=== PATIENT | male | born 1945 | race African-American/Black ===

== ENCOUNTER 2018-02-08 13:22 | Inpatient (IN) | payer MEDICARE, MEDICAID ==
[~2018-02-08] VITALS: Ht 165.1 cm; Wt 59.4 kg
[2018-02-08] MEDS ORDERED: METHYLPREDNISOLONE SOD SUCC 125 MG/2 ML VIAL IV STA (14:00)
[2018-02-08] MEDS ORDERED: ALBUTEROL (0.083%) 2.5MG/3ML NEB HHN STA (14:00)
[2018-02-08] MEDS ORDERED: IPRATROPIUM BROMIDE (0.02%) 0.5MG/2.5ML NEB HHN STA (14:00)
[2018-02-08 14:35] LABS: BASOPHILS % 0.8 % (0.0-2.0); HEMATOCRIT. 42.9 % (42.0-52.0); HEMOGLOBIN. 14.3 g/dL (14.0-18.0); LYMPHOCYTES % 27.6 % (20.0-50.0); MEAN CORPUSCULAR VOLUME 99.3 fL (80.0-94.0); MEAN PLATELET VOLUME 8.2 fl (7.4-10.4); MONOCYTES % 13.4 % (2.0-8.0); NEUTROPHILS % 55.2 % (40.0-76.0); PLATELET 316 x1000/uL (130-400); RED BLOOD CELL COUNT 4.32 mill/uL (4.7-6.1); RED CELL DISTRIBUTION WIDTH 15.4 % (11.6-14.6)
[2018-02-08 14:42] LABS: CHLORIDE 106 mEq/L (98-107)
[2018-02-08] MEDS ORDERED: AZITHROMYCIN 500 MG in DEXT 5% WATER 250 ML IV ONE (15:15)
[2018-02-08] MEDS ORDERED: CEFTRIAXONE 2 G PREMIX 50 ML IV ONE (15:15)
[2018-02-08] MEDS ORDERED: LORAZEPAM 0.5MG TABLET PO PRN (17:45)
[2018-02-08] MEDS ORDERED: IPRATROPIUM/ALBUTEROL 0.5-3(2.5)MG/3ML NEB INH PRN (17:45)
[2018-02-08] MEDS ORDERED: TRAMADOL 50MG TABLET PO PRN (17:45)
[2018-02-08] MEDS ORDERED: ONDANSETRON HCL 4MG/2ML INJ IV PRN (17:45)
[2018-02-08] MEDS ORDERED: CLONIDINE 0.1MG TABLET PO PRN (17:45)
[2018-02-08] MEDS ORDERED: DIPHENHYDRAMINE 50MG/ML VIAL IV PRN (17:45)
[2018-02-08] MEDS ORDERED: NITROGLYCERIN 0.4MG TABLET SL SL PRN (17:45)
[2018-02-08] MEDS ORDERED: GUAIFENESIN 200MG/10ML SUGAR FREE UDC PO PRN (17:45)
[2018-02-08] MEDS ORDERED: ZOLPIDEM TARTRATE 5MG TABLET PO PRN (17:45)
[2018-02-08] MEDS ORDERED: ACETAMINOPHEN 325MG TABLET PO PRN (17:45)
[2018-02-08] MEDS ORDERED: NA PHOS,M-B/NA PHOS,DI-BA ENEMA 118ML PR PRN (17:45)
[2018-02-08] MEDS ORDERED: MAGNESIUM/ALUMINUM HYDROXIDE/SIMETHICONE 30ML UDC PO PRN (17:45)
[2018-02-08 18:17] VITALS: BP 148/91
[2018-02-08] MEDS ORDERED: ALLO300T2 PO (18:35)
[2018-02-08] MEDS ORDERED: BENA40TA9 PO (18:35)
[2018-02-08] MEDS ORDERED: NAPR-679 MT (18:35)
[2018-02-08] MEDS ORDERED: AMLO2.5T45 MT (18:35)
[2018-02-08] MEDS ORDERED: ATOR40TA70 PO (18:35)
[2018-02-08] MEDS ORDERED: ASPI-1159 PO (18:35)
[2018-02-08 19:05] LABS: *AMPHETAMINES SCREEN URINE NEGATIVE (NEGATIVE); *BARBITURATES SCREEN URINE NEGATIVE (NEGATIVE); *BENZODIAZEPINES SCREEN URINE NEGATIVE (NEGATIVE); *COCAINE SCREEN URINE NEGATIVE (NEGATIVE)
[2018-02-08 19:06] LABS: CANNABINOID URINE SCREEN NEGATIVE (NEGATIVE); METHADONE URINE SCREEN NEGATIVE (NEGATIVE); OPIATES URINE SCREEN NEGATIVE (NEGATIVE); PHENCYCLIDINE URINE SCREEN NEGATIVE (NEGATIVE)
[2018-02-08 20:00] VITALS: BP 137/80
[2018-02-08] MEDS: LEVOFLOXACIN 750MG PREMIX 150 ML IV SCH (20:36)
[2018-02-08] MEDS: ENOXAPARIN 40MG/0.4ML SYR SUBCUT SCH (20:37)
[2018-02-08] MEDS: FAMOTIDINE 20MG TABLET PO SCH (20:38)
[2018-02-08] MEDS: DILTIAZEM HCL 90MG TABLET PO SCH ×2 (20:38→23:59)
[2018-02-08] MEDS: GUAIFENESIN 600MG ER TABLET PO SCH (20:39)
[2018-02-08] MEDS: ASCORBIC ACID 500 MG TABLET PO SCH (20:39)
[2018-02-08 21:00] VITALS: BP 148/91
[2018-02-08] MEDS: METHYLPREDNISOLONE SOD SUCC 125 MG/2 ML VIAL IV SCH (22:01)
[2018-02-09] VITALS: BP 131/78
[2018-02-09 01:14] LABS: CREATINE KINASE 83 IU/L (39-308)
[2018-02-09 01:17] LABS: CREATINE KINASE MB FRACTION 1.5 ng/mL (0.5-3.6)
[2018-02-09 04:00] VITALS: BP 118/70
[2018-02-09] MEDS: METHYLPREDNISOLONE SOD SUCC 125 MG/2 ML VIAL IV SCH ×4 (05:51→20:27)
[2018-02-09] MEDS: DILTIAZEM HCL 90MG TABLET PO SCH ×4 (05:52→23:47)
[2018-02-09 06:59] LABS: CREATINE KINASE 73 IU/L (39-308)
[2018-02-09 07:00] LABS: CREATINE KINASE MB FRACTION 1.7 ng/mL (0.5-3.6)
[2018-02-09] MEDS: GUAIFENESIN 600MG ER TABLET PO SCH ×2 (09:36→20:27)
[2018-02-09] MEDS: ZINC SULFATE 220 MG ( 50 ) CAPSULE PO SCH (09:37)
[2018-02-09] MEDS: ASCORBIC ACID 500 MG TABLET PO SCH ×2 (09:37→20:27)
[2018-02-09] MEDS: ASPIRIN 325MG EC TABLET PO SCH (09:37)
[2018-02-09] MEDS: FAMOTIDINE 20MG TABLET PO SCH ×2 (09:37→20:27)
[2018-02-09 20:00] VITALS: BP 114/63
[2018-02-09] MEDS: LEVOFLOXACIN 750MG PREMIX 150 ML IV SCH (20:28)
[2018-02-09] MEDS: ENOXAPARIN 40MG/0.4ML SYR SUBCUT SCH (22:50)
[2018-02-10] VITALS: BP 138/69
[2018-02-10 04:00] VITALS: BP 143/91
[2018-02-10] MEDS: IPRATROPIUM/ALBUTEROL 0.5-3(2.5)MG/3ML NEB HHN SCH ×5 (04:52→21:14)
[2018-02-10] MEDS: DILTIAZEM HCL 90MG TABLET PO SCH ×3 (05:57→17:30)
[2018-02-10] MEDS: METHYLPREDNISOLONE SOD SUCC 125 MG/2 ML VIAL IV SCH ×3 (05:57→21:08)
[2018-02-10 08:00] VITALS: BP 117/68
[2018-02-10] MEDS: ASCORBIC ACID 500 MG TABLET PO SCH ×2 (08:42→21:08)
[2018-02-10] MEDS: ZINC SULFATE 220 MG ( 50 ) CAPSULE PO SCH (08:42)
[2018-02-10] MEDS: ASPIRIN 325MG EC TABLET PO SCH (08:42)
[2018-02-10] MEDS: GUAIFENESIN 600MG ER TABLET PO SCH ×2 (08:42→21:08)
[2018-02-10] MEDS: FAMOTIDINE 20MG TABLET PO SCH ×2 (08:43→21:08)
[2018-02-10 11:51] VITALS: BP 114/67
[2018-02-10 16:00] VITALS: BP 144/76
[2018-02-10] MEDS: ENOXAPARIN 40MG/0.4ML SYR SUBCUT SCH (17:31)
[2018-02-10] MEDS: DOCUSATE SODIUM 100MG CAPSULE PO PRN (18:49)
[2018-02-10 20:00] VITALS: BP 113/61
[2018-02-10] MEDS ORDERED: POTASSIUM CHLORIDE 20MEQ TABLET SR PO NR (21:00)
[2018-02-10] MEDS: LEVOFLOXACIN 750MG PREMIX 150 ML IV SCH (21:08)
[2018-02-11] VITALS: BP 116/64
[2018-02-11] MEDS: IPRATROPIUM/ALBUTEROL 0.5-3(2.5)MG/3ML NEB HHN SCH ×6 (01:00→20:46)
[2018-02-11 04:00] VITALS: BP 118/59
[2018-02-11] MEDS: DILTIAZEM HCL 90MG TABLET PO SCH ×2 (05:53)
[2018-02-11] MEDS: METHYLPREDNISOLONE SOD SUCC 125 MG/2 ML VIAL IV SCH ×3 (06:00→21:04)
[2018-02-11] MEDS: DOCUSATE SODIUM 100MG CAPSULE PO PRN (06:05)
[2018-02-11 08:00] VITALS: BP 130/69
[2018-02-11] MEDS: ASCORBIC ACID 500 MG TABLET PO SCH ×2 (09:08→21:04)
[2018-02-11] MEDS: ZINC SULFATE 220 MG ( 50 ) CAPSULE PO SCH (09:08)
[2018-02-11] MEDS: FAMOTIDINE 20MG TABLET PO SCH ×2 (09:08→21:04)
[2018-02-11] MEDS: ASPIRIN 325MG EC TABLET PO SCH (09:08)
[2018-02-11] MEDS: GUAIFENESIN 600MG ER TABLET PO SCH ×2 (09:08→21:04)
[2018-02-11 12:00] VITALS: BP 129/65
[2018-02-11] MEDS: DILTIAZEM HCL 60MG TABLET PO SCH ×2 (14:37→21:05)
[2018-02-11 16:00] VITALS: BP 131/65
[2018-02-11] MEDS: ENOXAPARIN 40MG/0.4ML SYR SUBCUT SCH (18:17)
[2018-02-11 20:00] VITALS: BP 141/69
[2018-02-11] MEDS: LEVOFLOXACIN 750MG PREMIX 150 ML IV SCH (21:03)
[2018-02-12] VITALS: BP 130/69
[2018-02-12] MEDS: IPRATROPIUM/ALBUTEROL 0.5-3(2.5)MG/3ML NEB HHN SCH ×3 (01:23→08:13)
[2018-02-12 04:00] VITALS: BP 149/79
[2018-02-12] MEDS: METHYLPREDNISOLONE SOD SUCC 125 MG/2 ML VIAL IV SCH (05:06)
[2018-02-12] MEDS: DILTIAZEM HCL 60MG TABLET PO SCH (05:06)
[2018-02-12 08:00] VITALS: BP 127/76
[2018-02-12] MEDS: GUAIFENESIN 600MG ER TABLET PO SCH (08:57)
[2018-02-12] MEDS: FAMOTIDINE 20MG TABLET PO SCH (08:57)
[2018-02-12] MEDS: ASPIRIN 325MG EC TABLET PO SCH (08:57)
[2018-02-12] MEDS: ZINC SULFATE 220 MG ( 50 ) CAPSULE PO SCH (08:57)
[2018-02-12] MEDS: ASCORBIC ACID 500 MG TABLET PO SCH (08:57)
[2018-02-12 09:36] LABS: HEMATOCRIT. 40.1 % (42.0-52.0); HEMOGLOBIN. 13.2 g/dL (14.0-18.0); MEAN CORPUSCULAR HEMOGLOBIN 32.5 pg (28.0-32.0); MEAN CORPUSCULAR VOLUME 98.4 fL (80.0-94.0); MEAN PLATELET VOLUME 8.7 fl (7.4-10.4); PLATELET 368 x1000/uL (130-400); RED BLOOD CELL COUNT 4.07 mill/uL (4.7-6.1)
[2018-02-12 09:53] VITALS: BP 127/76
[2018-02-12 10:01] LABS: CHLORIDE 102 mEq/L (98-107)
[2018-02-12 12:00] VITALS: BP 135/75
[2018-02-12 12:25] LABS: PLATELET ESTIMATE NORMAL
== END 2018-02-12 12:10 | disposition home or self-care (01) | DRG 193 ==
LOC: ENRESERV 16:09 → ER 16:28 → 7WST 16:46
PROVIDERS: ADMIT Internal Medicine; ATTEND Internal Medicine
DX: J18.1 Lobar pneumonia, unspecified organism (principal); J96.00 Acute respiratory failure, unspecified whether with hypoxia or hypercapnia; J44.1 Chronic obstructive pulmonary disease with (acute) exacerbation; J44.0 Chronic obstructive pulmonary disease with (acute) lower respiratory infection; I47.2 Ventricular tachycardia; D68.4 Acquired coagulation factor deficiency; D68.9 Coagulation defect, unspecified; I10 Essential (primary) hypertension; E78.00 Pure hypercholesterolemia, unspecified; E83.42 Hypomagnesemia; E87.6 Hypokalemia; F17.210 Nicotine dependence, cigarettes, uncomplicated; I11.9 Hypertensive heart disease without heart failure; M19.90 Unspecified osteoarthritis, unspecified site; Z79.899 Other long term (current) drug therapy; Z79.82 Long term (current) use of aspirin
CPT/HCPCS: 36415; 71045; 80048; 80305; 82550; 82553; 83036; 83605; 83735; 83880; 84132; 84484; 87804; 93005; 93306; 93970; 94640; 96374; 96375; 97162; 97165; 99285; C1893; J0456; J0696; J1650; J1956; J2930; J7040; J7060; J7611; J7620

== ENCOUNTER 2018-02-25 11:42 | Inpatient (IN) | payer MEDICARE, MEDICAID ==
[~2018-02-25] VITALS: Ht 172.7 cm; Wt 59.9 kg
[~2018-02-25 11:42] MED LIST: ALLO300T2 PO; AMLO2.5T45 MT; ASPI-1159 PO; ATOR40TA70 PO; BENA40TA9 PO; NAPR-679 MT
[2018-02-25] MEDS ORDERED: METHYLPREDNISOLONE SOD SUCC 125 MG/2 ML VIAL IV STA (12:30)
[2018-02-25] MEDS ORDERED: ALBUTEROL (0.083%) 2.5MG/3ML NEB HHN STA (12:30)
[2018-02-25] MEDS ORDERED: ASPIRIN 81MG TABLET PO ONE (12:30)
[2018-02-25] MEDS ORDERED: IPRATROPIUM BROMIDE (0.02%) 0.5MG/2.5ML NEB HHN STA (12:30)
[2018-02-25 13:25] LABS: BASOPHILS % 0.8 % (0.0-2.0); EOSINOPHILS % 2.1 % (0.0-5.0); HEMATOCRIT. 44.5 % (42.0-52.0); HEMOGLOBIN. 14.5 g/dL (14.0-18.0); LYMPHOCYTES % 12.4 % (20.0-50.0); MEAN CORPUSCULAR HEMOGLOBIN 32.1 pg (28.0-32.0); MEAN CORPUSCULAR VOLUME 98.4 fL (80.0-94.0); MEAN PLATELET VOLUME 8.5 fl (7.4-10.4); MONOCYTES % 12.8 % (2.0-8.0); NEUTROPHILS % 71.9 % (40.0-76.0); PLATELET 299 x1000/uL (130-400); RED BLOOD CELL COUNT 4.52 mill/uL (4.7-6.1); RED CELL DISTRIBUTION WIDTH 15.4 % (11.6-14.6)
[2018-02-25] MEDS ORDERED: ALBUTEROL (0.083%) 2.5MG/3ML NEB ONE (13:31)
[2018-02-25 13:32] LABS: CHLORIDE 106 mEq/L (98-107)
[2018-02-25] MEDS ORDERED: SODIUM CHLORIDE 0.9% 1,000 ML IV ONE ×2 (13:40→13:45)
[2018-02-25] MEDS ORDERED: PIPERACILLIN/TAZOBACTAM 3.375GM/50ML PREMIX IV ONE (13:45)
[2018-02-25] MEDS ORDERED: PIPERACILLIN/TAZ 3.375G PREMIX 50 ML IV SCH (14:30)
[2018-02-25] MEDS ORDERED: ONDANSETRON HCL 4MG/2ML INJ IV PRN (15:30)
[2018-02-25] MEDS ORDERED: GUAIFENESIN-DM 200MG-20MG/10ML UDC PO PRN (15:30)
[2018-02-25] MEDS ORDERED: BUDESONIDE 0.5MG/2ML NEB HHN SCH (15:30)
[2018-02-25] MEDS ORDERED: ACETAMINOPHEN 325MG TABLET PO PRN (15:30)
[2018-02-25] MEDS ORDERED: AZITHROMYCIN 500 MG TABLET PO NR (15:45)
[2018-02-25] MEDS ORDERED: CEFTRIAXONE 1 G PREMIX 50 ML IV NR (15:45)
[2018-02-25 15:55] LABS: CLARITY URINE CLEAR (CLEAR); COLOR URINE YELLOW (YELLOW); KETONES URINE NEGATIVE (NEGATIVE); LEUKOCYTE ESTERASE URINE NEGATIVE (NEGATIVE); NITRITE URINE NEGATIVE (NEGATIVE); OCCULT BLOOD URINE NEGATIVE (NEGATIVE); PROTEIN URINE NEGATIVE (NEGATIVE); SPECIFIC GRAVITY URINE 1.014 (1.005-1.030); UROBILINOGEN URINE 0.2 E.U./dL (0.2-1.0)
[2018-02-25] MEDS: CLONIDINE 0.1MG TABLET PO PRN ×2 (16:07→21:28)
[2018-02-25 16:09] LABS: *AMPHETAMINES SCREEN URINE NEGATIVE (NEGATIVE); CANNABINOID URINE SCREEN NEGATIVE (NEGATIVE); METHADONE URINE SCREEN NEGATIVE (NEGATIVE); OPIATES URINE SCREEN NEGATIVE (NEGATIVE); PHENCYCLIDINE URINE SCREEN NEGATIVE (NEGATIVE)
[2018-02-25 16:10] LABS: *BARBITURATES SCREEN URINE NEGATIVE (NEGATIVE); *BENZODIAZEPINES SCREEN URINE NEGATIVE (NEGATIVE); *COCAINE SCREEN URINE NEGATIVE (NEGATIVE)
[2018-02-25 20:00] VITALS: BP 182/102
[2018-02-25] MEDS: ZOLPIDEM TARTRATE 5MG TABLET PO PRN (21:27)
[2018-02-25] MEDS: AMLODIPINE 5MG TABLET PO SCH (21:28)
[2018-02-25] MEDS: IPRATROPIUM/ALBUTEROL 0.5-3(2.5)MG/3ML NEB HHN PRN (21:37)
[2018-02-25] MEDS: BUDESONIDE 0.5MG/2ML NEB HHN SCH (21:41)
[2018-02-25] MEDS: HYDROCODONE/ACETAMINOPHEN 10/325MG TABLET PO PRN (21:58)
[2018-02-25] MEDS: GUAIFENESIN 600MG ER TABLET PO SCH (21:59)
[2018-02-25] MEDS: ATORVASTATIN CALCIUM 40MG TABLET PO SCH (21:59)
[2018-02-25 22:20] VITALS: BP 182/102
[2018-02-26 00:50] VITALS: BP 120/71
[2018-02-26 04:00] VITALS: BP 132/88
[2018-02-26 07:15] LABS: BASOPHILS % 0.3 % (0.0-2.0); HEMATOCRIT. 38.6 % (42.0-52.0); HEMOGLOBIN. 12.5 g/dL (14.0-18.0); LYMPHOCYTES % 9.1 % (20.0-50.0); MEAN CORPUSCULAR HEMOGLOBIN 31.6 pg (28.0-32.0); MEAN CORPUSCULAR VOLUME 97.5 fL (80.0-94.0); MEAN PLATELET VOLUME 8.6 fl (7.4-10.4); MONOCYTES % 3.4 % (2.0-8.0); NEUTROPHILS % 87.2 % (40.0-76.0); PLATELET 300 x1000/uL (130-400); RED BLOOD CELL COUNT 3.96 mill/uL (4.7-6.1); RED CELL DISTRIBUTION WIDTH 15.1 % (11.6-14.6)
[2018-02-26 08:00] VITALS: BP 137/87
[2018-02-26 08:06] LABS: CHLORIDE 109 mEq/L (98-107)
[2018-02-26] MEDS: GUAIFENESIN 600MG ER TABLET PO SCH ×2 (08:54→20:46)
[2018-02-26] MEDS: AZITHROMYCIN 500 MG TABLET PO SCH (08:54)
[2018-02-26] MEDS: ENOXAPARIN 40MG/0.4ML SYR SUBCUT SCH (08:55)
[2018-02-26] MEDS: ALLOPURINOL 300 MG TABLET PO SCH (08:55)
[2018-02-26] MEDS: AMLODIPINE 5MG TABLET PO SCH ×2 (08:55→20:46)
[2018-02-26] MEDS: BUDESONIDE 0.5MG/2ML NEB HHN SCH ×2 (09:15→20:49)
[2018-02-26] MEDS: HYDROCODONE/ACETAMINOPHEN 10/325MG TABLET PO PRN (12:27)
[2018-02-26 12:30] VITALS: BP 155/79
[2018-02-26 13:28] LABS: BG BASE EXCESS -1.4 mmol/L (-2.0-2.0); BG CARBOXYHEMOGLOBIN 0.9 % (0.5-1.5); BG DEOXYHEMOGLOBIN 18.1 % (0.0-5.0); BG FRACTION INSPIRED OXYGEN 21; BG HCO3 ACT 22.2 mmol/L (22.0-26.0); BG OXYGEN SATURATION 81.7 % (92.0-98.5); BG PH 7.432 (7.350-7.450); BG SAMPLE SITE RIGHT BRACHIAL; BG TOTAL HEMOGLOBIN 13.6 g/dL (12.0-18.0); BG VENT MODE ROOM AIR
[2018-02-26] MEDS: CEFTRIAXONE 1 G PREMIX 50 ML IV SCH (14:35)
[2018-02-26] MEDS ORDERED: IOHEXOL-350 100 ML BOTTLE ONE ×2 (15:25→15:57)
[2018-02-26] MEDS ORDERED: CEFTRIAXONE 1 G PREMIX 50 ML IV SCH (15:30)
[2018-02-26 16:00] VITALS: BP 135/87
[2018-02-26] MEDS: IPRATROPIUM BROMIDE (0.02%) 0.5MG/2.5ML NEB HHN SCH ×2 (17:05→20:47)
[2018-02-26] MEDS: ACETYLCYSTEINE 100MG/ML 10% VIAL 4ML INH SCH (17:05)
[2018-02-26 20:00] VITALS: BP 140/80
[2018-02-26] MEDS ORDERED: INFLUENZA VIRUS VACCINE(AFLURIA) 0.5ML SYR IM ONE (20:30)
[2018-02-26] MEDS: ZOLPIDEM TARTRATE 5MG TABLET PO PRN (20:46)
[2018-02-26] MEDS: IPRATROPIUM/ALBUTEROL 0.5-3(2.5)MG/3ML NEB HHN PRN (20:46)
[2018-02-26] MEDS: ATORVASTATIN CALCIUM 40MG TABLET PO SCH (20:46)
[2018-02-27] VITALS: BP 145/85
[2018-02-27] MEDS: IPRATROPIUM BROMIDE (0.02%) 0.5MG/2.5ML NEB HHN SCH ×6 (00:45→21:37)
[2018-02-27] MEDS: ACETYLCYSTEINE 100MG/ML 10% VIAL 4ML INH SCH ×3 (00:45→15:53)
[2018-02-27] MEDS: HYDROCODONE/ACETAMINOPHEN 10/325MG TABLET PO PRN ×2 (03:51→14:23)
[2018-02-27 04:00] VITALS: BP 154/86
[2018-02-27 07:11] LABS: BASOPHILS % 0.6 % (0.0-2.0); HEMATOCRIT. 39.9 % (42.0-52.0); HEMOGLOBIN. 12.9 g/dL (14.0-18.0); MEAN CORPUSCULAR HEMOGLOBIN 31.5 pg (28.0-32.0); MEAN CORPUSCULAR VOLUME 97.5 fL (80.0-94.0); MEAN PLATELET VOLUME 8.6 fl (7.4-10.4); MONOCYTES % 7.6 % (2.0-8.0); NEUTROPHILS % 77.8 % (40.0-76.0); PLATELET 304 x1000/uL (130-400); RED BLOOD CELL COUNT 4.09 mill/uL (4.7-6.1); RED CELL DISTRIBUTION WIDTH 15.2 % (11.6-14.6)
[2018-02-27 07:22] LABS: CHLORIDE 106 mEq/L (98-107)
[2018-02-27 08:00] VITALS: BP 140/87
[2018-02-27] MEDS: BUDESONIDE 0.5MG/2ML NEB HHN SCH ×2 (08:05→21:37)
[2018-02-27] MEDS: AZITHROMYCIN 500 MG TABLET PO SCH (08:38)
[2018-02-27] MEDS: AMLODIPINE 5MG TABLET PO SCH ×2 (08:39→21:13)
[2018-02-27] MEDS: ENOXAPARIN 40MG/0.4ML SYR SUBCUT SCH (08:39)
[2018-02-27] MEDS: ALLOPURINOL 300 MG TABLET PO SCH (08:39)
[2018-02-27] MEDS: GUAIFENESIN 600MG ER TABLET PO SCH ×2 (08:39→21:14)
[2018-02-27 12:00] VITALS: BP 146/78
[2018-02-27] MEDS ORDERED: LORAZEPAM 2MG/ML CPJ IV PRN (13:45)
[2018-02-27] MEDS: CEFTRIAXONE 1 G PREMIX 50 ML IV SCH (15:39)
[2018-02-27 16:00] VITALS: BP 132/80
[2018-02-27 18:04] LABS: PROTHROMBIN TIME 10.5 sec (9.1-11.1)
[2018-02-27 19:56] VITALS: BP 137/86
[2018-02-27] MEDS: ATORVASTATIN CALCIUM 40MG TABLET PO SCH (21:13)
[2018-02-27] MEDS: ZOLPIDEM TARTRATE 5MG TABLET PO PRN (21:14)
[2018-02-28] VITALS: BP 112/71
[2018-02-28] MEDS: IPRATROPIUM BROMIDE (0.02%) 0.5MG/2.5ML NEB HHN SCH ×4 (00:34→20:47)
[2018-02-28] MEDS: ACETYLCYSTEINE 100MG/ML 10% VIAL 4ML INH SCH ×2 (00:34→14:07)
[2018-02-28 04:00] VITALS: BP 160/102
[2018-02-28] MEDS: HYDROCODONE/ACETAMINOPHEN 10/325MG TABLET PO PRN ×2 (04:36→19:02)
[2018-02-28] MEDS: CLONIDINE 0.1MG TABLET PO PRN (04:36)
[2018-02-28 07:25] LABS: BASOPHILS % 0.8 % (0.0-2.0); EOSINOPHILS % 4.3 % (0.0-5.0); HEMATOCRIT. 39.4 % (42.0-52.0); HEMOGLOBIN. 13.1 g/dL (14.0-18.0); LYMPHOCYTES % 20.9 % (20.0-50.0); MEAN CORPUSCULAR HEMOGLOBIN 32.1 pg (28.0-32.0); MEAN CORPUSCULAR VOLUME 96.5 fL (80.0-94.0); MEAN PLATELET VOLUME 8.6 fl (7.4-10.4); MONOCYTES % 13.5 % (2.0-8.0); NEUTROPHILS % 60.5 % (40.0-76.0); PLATELET 303 x1000/uL (130-400); RED BLOOD CELL COUNT 4.08 mill/uL (4.7-6.1); RED CELL DISTRIBUTION WIDTH 15.3 % (11.6-14.6)
[2018-02-28 07:35] LABS: CHLORIDE 103 mEq/L (98-107)
[2018-02-28 08:00] VITALS: BP 140/99
[2018-02-28] MEDS: ENOXAPARIN 40MG/0.4ML SYR SUBCUT SCH (09:00)
[2018-02-28] MEDS: ALLOPURINOL 300 MG TABLET PO SCH (09:02)
[2018-02-28] MEDS: AZITHROMYCIN 500 MG TABLET PO SCH (09:02)
[2018-02-28] MEDS: GUAIFENESIN 600MG ER TABLET PO SCH ×2 (09:03→21:14)
[2018-02-28] MEDS: AMLODIPINE 5MG TABLET PO SCH ×2 (09:03→21:14)
[2018-02-28] MEDS ORDERED: SODIUM BICARBONATE 4% (2.4MEQ) 5ML VIAL IV ONE (09:31)
[2018-02-28 12:00] VITALS: BP 137/85
[2018-02-28 13:29] LABS: PROTHROMBIN TIME 10.4 sec (9.1-11.1)
[2018-02-28] MEDS: BUDESONIDE 0.5MG/2ML NEB HHN SCH ×2 (14:07→20:47)
[2018-02-28 16:00] VITALS: BP 147/94
[2018-02-28] MEDS: CEFTRIAXONE 1 G PREMIX 50 ML IV SCH (18:12)
[2018-02-28 20:00] VITALS: BP 137/79
[2018-02-28] MEDS: ATORVASTATIN CALCIUM 40MG TABLET PO SCH (21:14)
[2018-02-28] MEDS: ZOLPIDEM TARTRATE 5MG TABLET PO PRN (21:14)
[2018-03-01] VITALS (7 sets, daily range): BP systolic 118–143; BP diastolic 79–99
[2018-03-01] MEDS: IPRATROPIUM BROMIDE (0.02%) 0.5MG/2.5ML NEB HHN SCH ×5 (00:31→21:11)
[2018-03-01] MEDS: ACETYLCYSTEINE 100MG/ML 10% VIAL 4ML INH SCH ×2 (00:31→13:00)
[2018-03-01] MEDS: ENOXAPARIN 40MG/0.4ML SYR SUBCUT SCH ×2 (08:49→08:53)
[2018-03-01] MEDS: AMLODIPINE 5MG TABLET PO SCH ×2 (08:49→20:26)
[2018-03-01] MEDS: AZITHROMYCIN 500 MG TABLET PO SCH (08:49)
[2018-03-01] MEDS: GUAIFENESIN 600MG ER TABLET PO SCH ×2 (08:49→20:26)
[2018-03-01] MEDS: ALLOPURINOL 300 MG TABLET PO SCH (09:20)
[2018-03-01] MEDS: CEFTRIAXONE 1 G PREMIX 50 ML IV SCH (14:54)
[2018-03-01] MEDS: ATORVASTATIN CALCIUM 40MG TABLET PO SCH (20:26)
[2018-03-01] MEDS: ZOLPIDEM TARTRATE 5MG TABLET PO PRN (20:26)
[2018-03-01] MEDS: HYDROCODONE/ACETAMINOPHEN 10/325MG TABLET PO PRN (20:26)
[2018-03-02] VITALS: BP 110/79
[2018-03-02] MEDS: IPRATROPIUM BROMIDE (0.02%) 0.5MG/2.5ML NEB HHN SCH ×7 (00:54→23:47)
[2018-03-02] MEDS: ACETYLCYSTEINE 100MG/ML 10% VIAL 4ML INH SCH ×4 (00:55→23:39)
[2018-03-02 04:00] VITALS: BP 120/71
[2018-03-02 08:00] VITALS: BP 122/69
[2018-03-02] MEDS: AMLODIPINE 5MG TABLET PO SCH ×2 (09:04→20:53)
[2018-03-02] MEDS: AZITHROMYCIN 500 MG TABLET PO SCH (09:05)
[2018-03-02] MEDS: GUAIFENESIN 600MG ER TABLET PO SCH ×2 (09:05→20:52)
[2018-03-02] MEDS: ALLOPURINOL 300 MG TABLET PO SCH (09:05)
[2018-03-02] MEDS: ENOXAPARIN 40MG/0.4ML SYR SUBCUT SCH (09:13)
[2018-03-02 12:00] VITALS: BP 130/70
[2018-03-02 13:36] LABS: BG BASE EXCESS -0.9 mmol/L (-2.0-2.0); BG CARBOXYHEMOGLOBIN 1.2 % (0.5-1.5); BG DEOXYHEMOGLOBIN 13.7 % (0.0-5.0); BG FRACTION INSPIRED OXYGEN 21; BG HCO3 ACT 23.4 mmol/L (22.0-26.0); BG METHEMOGLOBIN 0.3 % (0.0-1.5); BG OXYGEN SATURATION 86.1 % (92.0-98.5); BG OXYHEMOGLOBIN 84.8 % (94.0-97.0); BG PH 7.408 (7.350-7.450); BG PO2 51.4 mmHg (75.0-100.0); BG SAMPLE SITE RIGHT BRACHIAL; BG VENT MODE ROOM AIR
[2018-03-02] MEDS: CEFTRIAXONE 1 G PREMIX 50 ML IV SCH (14:08)
[2018-03-02] MEDS: HYDROCODONE/ACETAMINOPHEN 10/325MG TABLET PO PRN ×2 (14:15→20:53)
[2018-03-02 16:00] VITALS: BP 128/69
[2018-03-02 20:00] VITALS: BP 133/81
[2018-03-02] MEDS: ATORVASTATIN CALCIUM 40MG TABLET PO SCH (20:52)
[2018-03-02] MEDS: ZOLPIDEM TARTRATE 5MG TABLET PO PRN (23:29)
[2018-03-02] MEDS: IPRATROPIUM/ALBUTEROL 0.5-3(2.5)MG/3ML NEB HHN PRN (23:39)
[2018-03-03] VITALS: BP 125/71
[2018-03-03] MEDS: IPRATROPIUM BROMIDE (0.02%) 0.5MG/2.5ML NEB HHN SCH ×3 (04:00→12:21)
[2018-03-03] MEDS ORDERED: HYDROCODONE/ACETAMINOPHEN 10/325MG TABLET PO PRN (06:45)
[2018-03-03 08:00] VITALS: BP 109/79
[2018-03-03] MEDS: GUAIFENESIN 600MG ER TABLET PO SCH (09:00)
[2018-03-03] MEDS: AZITHROMYCIN 500 MG TABLET PO SCH (09:00)
[2018-03-03] MEDS: AMLODIPINE 5MG TABLET PO SCH (09:00)
[2018-03-03] MEDS: ALLOPURINOL 300 MG TABLET PO SCH (09:00)
[2018-03-03] MEDS: ENOXAPARIN 40MG/0.4ML SYR SUBCUT SCH (09:00)
[2018-03-03] MEDS: ACETYLCYSTEINE 100MG/ML 10% VIAL 4ML INH SCH (09:24)
[2018-03-03 10:09] LABS: EOSINOPHILS % 7.9 % (0.0-5.0); HEMATOCRIT. 43.1 % (42.0-52.0); HEMOGLOBIN. 14.1 g/dL (14.0-18.0); MEAN CORPUSCULAR VOLUME 97.4 fL (80.0-94.0); MEAN PLATELET VOLUME 8.2 fl (7.4-10.4); MONOCYTES % 12.3 % (2.0-8.0); NEUTROPHILS % 64.8 % (40.0-76.0); PLATELET 335 x1000/uL (130-400); RED BLOOD CELL COUNT 4.42 mill/uL (4.7-6.1); RED CELL DISTRIBUTION WIDTH 14.9 % (11.6-14.6)
[2018-03-03 10:23] LABS: CHLORIDE 104 mEq/L (98-107)
[2018-03-03 12:00] VITALS: BP 120/76
[2018-03-03] MEDS: CEFTRIAXONE 1 G PREMIX 50 ML IV SCH (14:04)
[2018-03-03 14:29] LABS: BG BASE EXCESS -1.6 mmol/L (-2.0-2.0); BG CARBOXYHEMOGLOBIN 1.8 % (0.5-1.5); BG DEOXYHEMOGLOBIN 12.1 % (0.0-5.0); BG FRACTION INSPIRED OXYGEN 21; BG HCO3 ACT 22.5 mmol/L (22.0-26.0); BG METHEMOGLOBIN 0.3 % (0.0-1.5); BG OXYGEN SATURATION 87.6 % (92.0-98.5); BG OXYHEMOGLOBIN 85.8 % (94.0-97.0); BG PCO2 36.5 mmHg (35.0-45.0); BG PH 7.408 (7.350-7.450); BG PO2 54.8 mmHg (75.0-100.0); BG SAMPLE SITE RIGHT BRACHIAL; BG TOTAL HEMOGLOBIN 15.1 g/dL (12.0-18.0); BG VENT MODE ROOM AIR
[2018-03-03 15:10] VITALS: BP 120/76
== END 2018-03-03 17:01 | disposition home health service (06) | DRG 871 ==
LOC: ER 12:19 → EDBEDREQ 12:39 → 7WST 14:07 → EDBEDREQ 14:09 → ENRESERV 18:12
PROVIDERS: ADMIT Internal Medicine; ATTEND Internal Medicine
PROC: 0W993ZZ Drainage of Right Pleural Cavity, Percutaneous Approach (ICD-10-PCS; principal; 2018-02-28)
DX: A41.9 Sepsis, unspecified organism (principal); J96.00 Acute respiratory failure, unspecified whether with hypoxia or hypercapnia; J18.1 Lobar pneumonia, unspecified organism; E44.1 Mild protein-calorie malnutrition; J44.0 Chronic obstructive pulmonary disease with (acute) lower respiratory infection; J90 Pleural effusion, not elsewhere classified; M10.9 Gout, unspecified; M19.90 Unspecified osteoarthritis, unspecified site; E78.5 Hyperlipidemia, unspecified; I11.9 Hypertensive heart disease without heart failure; F17.200 Nicotine dependence, unspecified, uncomplicated; R91.8 Other nonspecific abnormal finding of lung field; Z87.01 Personal history of pneumonia (recurrent); Z68.20 Body mass index [BMI] 20.0-20.9, adult
CPT/HCPCS: 32555; 36415; 36600; 71045; 71275; 80048; 80305; 82040; 82375; 82805; 83605; 83615; 83880; 84484; 85379; 87804; 88108; 88312; 93005; 93306; 94640; 96374; 99285; C1893; J0696; J1650; J2543; J2930; J3490; J7030; J7040; J7608; J7611; J7620; J7626; Q9967

== ENCOUNTER 2018-03-19 11:14 | Inpatient (IN) | payer MEDICARE, MEDICAID ==
[2018-03-19] VITALS (26 sets, daily range): BP systolic 45–164; BP diastolic 20–131
[~2018-03-19] VITALS: Ht 177.8 cm; Wt 61.3 kg
[2018-03-19] MEDS ORDERED: METHYLPREDNISOLONE SOD SUCC 125 MG/2 ML VIAL IV STA (11:27)
[2018-03-19] MEDS ORDERED: MAGNESIUM 2 G PREMIX 50 ML IV STA (11:27)
[2018-03-19] MEDS ORDERED: ALBUTEROL (0.083%) 2.5MG/3ML NEB HHN STA (11:27)
[2018-03-19] MEDS ORDERED: IPRATROPIUM BROMIDE (0.02%) 0.5MG/2.5ML NEB HHN STA (11:27)
[2018-03-19] MEDS ORDERED: IPRATROPIUM/ALBUTEROL 0.5-3(2.5)MG/3ML NEB ONE (11:37)
[2018-03-19] MEDS ORDERED: ALBUTEROL (0.5%) 2.5MG/0.5ML NEB HHN ONE (11:38)
[2018-03-19 12:21] LABS: BASOPHILS % 0.7 % (0.0-2.0); EOSINOPHILS % 0.8 % (0.0-5.0); HEMATOCRIT. 46.5 % (42.0-52.0); HEMOGLOBIN. 15.2 g/dL (14.0-18.0); LYMPHOCYTES % 11.5 % (20.0-50.0); MEAN CORPUSCULAR HEMOGLOBIN 31.2 pg (28.0-32.0); MEAN CORPUSCULAR VOLUME 95.5 fL (80.0-94.0); MEAN PLATELET VOLUME 8.6 fl (7.4-10.4); MONOCYTES % 8.6 % (2.0-8.0); NEUTROPHILS % 78.4 % (40.0-76.0); PLATELET 522 x1000/uL (130-400); RED BLOOD CELL COUNT 4.87 mill/uL (4.7-6.1); RED CELL DISTRIBUTION WIDTH 15.3 % (11.6-14.6)
[2018-03-19 12:35] LABS: CHLORIDE 106 mEq/L (98-107)
[2018-03-19 12:41] LABS: INR 1.1; PROTHROMBIN TIME 10.7 sec (9.1-11.1)
[2018-03-19] MEDS ORDERED: FENTANYL CITRATE/PF 50MCG/ML 2ML VIAL IV ONE (13:00)
[2018-03-19] MEDS ORDERED: ONDANSETRON HCL 4MG/2ML INJ IV ONE (13:00)
[2018-03-19] MEDS ORDERED: HYDROCODONE/ACETAMINOPHEN 5/325MG TABLET PO PRN (13:45)
[2018-03-19] MEDS ORDERED: ACETAMINOPHEN 325MG TABLET PO PRN (13:45)
[2018-03-19] MEDS ORDERED: ONDANSETRON HCL 4MG/2ML INJ IV PRN (13:45)
[2018-03-19 14:57] LABS: CLARITY URINE CLEAR (CLEAR); COLOR URINE DARK YELLOW (YELLOW); KETONES URINE TRACE (NEGATIVE); LEUKOCYTE ESTERASE URINE NEGATIVE (NEGATIVE); NITRITE URINE NEGATIVE (NEGATIVE); OCCULT BLOOD URINE NEGATIVE (NEGATIVE); PROTEIN URINE 1+ (NEGATIVE); SPECIFIC GRAVITY URINE 1.039 (1.005-1.030); UROBILINOGEN URINE 0.2 E.U./dL (0.2-1.0)
[2018-03-19] MEDS: AZITHROMYCIN 500 MG TABLET PO SCH (16:56)
[2018-03-19] MEDS ORDERED: ZOLPIDEM TARTRATE 5MG TABLET PO PRN (17:00)
[2018-03-19] MEDS: HYDROCODONE/ACETAMINOPHEN 10/325MG TABLET PO PRN (17:01)
[2018-03-19] MEDS ORDERED: ASCO-339 MT (17:12)
[2018-03-19] MEDS ORDERED: IBUP-2030 MT (17:12)
[2018-03-19] MEDS ORDERED: MIRT15TA6 PO (17:12)
[2018-03-19] MEDS ORDERED: MAGN400C PO (17:12)
[2018-03-19] MEDS ORDERED: MOME13HF INH (17:12)
[2018-03-19] MEDS ORDERED: AMLO5TAB88 PO (17:12)
[2018-03-19] MEDS ORDERED: INFLUENZA VIRUS VACCINE(AFLURIA) 0.5ML SYR IM ONE (21:00)
[2018-03-19] MEDS: IPRATROPIUM BROMIDE (0.02%) 0.5MG/2.5ML NEB HHN SCH (21:49)
[2018-03-19] MEDS: BUDESONIDE 0.5MG/2ML NEB HHN SCH (21:49)
[2018-03-20] VITALS (22 sets, daily range): BP systolic 106–141; BP diastolic 67–91
[2018-03-20] MEDS: IPRATROPIUM BROMIDE (0.02%) 0.5MG/2.5ML NEB HHN SCH ×2 (02:04→08:00)
[2018-03-20 04:53] LABS: BASOPHILS % 0.4 % (0.0-2.0); HEMATOCRIT. 38.1 % (42.0-52.0); HEMOGLOBIN. 12.4 g/dL (14.0-18.0); LYMPHOCYTES % 11.4 % (20.0-50.0); MEAN CORPUSCULAR HEMOGLOBIN 30.8 pg (28.0-32.0); MEAN CORPUSCULAR VOLUME 94.7 fL (80.0-94.0); MEAN PLATELET VOLUME 8.5 fl (7.4-10.4); MONOCYTES % 4.4 % (2.0-8.0); NEUTROPHILS % 83.8 % (40.0-76.0); PLATELET 456 x1000/uL (130-400); RED BLOOD CELL COUNT 4.03 mill/uL (4.7-6.1); RED CELL DISTRIBUTION WIDTH 14.5 % (11.6-14.6)
[2018-03-20 05:04] LABS: CHLORIDE 109 mEq/L (98-107)
[2018-03-20] MEDS: HYDROCODONE/ACETAMINOPHEN 10/325MG TABLET PO PRN ×4 (06:48→18:46)
[2018-03-20] MEDS: BUDESONIDE 0.5MG/2ML NEB HHN SCH ×2 (08:00→21:44)
[2018-03-20] MEDS ORDERED: PROPOFOL 200MG/20ML VIAL IV ONE (14:47)
[2018-03-20] MEDS ORDERED: ROCURONIUM BROMIDE 10MG/ML VIAL 5ML IV ONE (14:47)
[2018-03-20] MEDS ORDERED: FENTANYL CITRATE/PF 50MCG/ML 2ML VIAL ONE (14:47)
[2018-03-20] MEDS ORDERED: CEFAZOLIN SODIUM 1000MG/VIAL ONE (15:03)
[2018-03-20] MEDS ORDERED: GLYCOPYRROLATE 0.2 MG/ML 2ML VIAL ONE (15:18)
[2018-03-20] MEDS ORDERED: NEOSTIGMINE METHYLSULFATE 1MG/ML 10 ML VIAL ONE (15:18)
[2018-03-20] MEDS ORDERED: ONDANSETRON HCL 4MG/2ML INJ ONE (15:24)
[2018-03-20 16:56] LABS: BG BASE EXCESS 1.4 mmol/L (-2.0-2.0); BG CARBOXYHEMOGLOBIN 0.7 % (0.5-1.5); BG DEOXYHEMOGLOBIN 19.5 % (0.0-5.0); BG FRACTION INSPIRED OXYGEN 21; BG HCO3 ACT 25.9 mmol/L (22.0-26.0); BG METHEMOGLOBIN 0.2 % (0.0-1.5); BG OXYGEN SATURATION 80.3 % (92.0-98.5); BG OXYHEMOGLOBIN 79.6 % (94.0-97.0); BG PCO2 40.4 mmHg (35.0-45.0); BG PH 7.424 (7.350-7.450); BG PO2 45.8 mmHg (75.0-100.0); BG SAMPLE SITE RIGHT BRACHIAL; BG TOTAL HEMOGLOBIN 13.4 g/dL (12.0-18.0); BG VENT MODE ROOM AIR
[2018-03-20] MEDS: AZITHROMYCIN 500 MG TABLET PO SCH (17:23)
[2018-03-20] MEDS ORDERED: IOHEXOL-300 100 ML BOTTLE ONE (21:36)
[2018-03-20] MEDS: IPRATROPIUM/ALBUTEROL 0.5-3(2.5)MG/3ML NEB HHN PRN (21:44)
[2018-03-20 22:01] LABS: BASOPHILS % 0.5 % (0.0-2.0); EOSINOPHILS % 0.6 % (0.0-5.0); HEMOGLOBIN. 12.4 g/dL (14.0-18.0); LYMPHOCYTES % 9.3 % (20.0-50.0); MEAN CORPUSCULAR HEMOGLOBIN 30.3 pg (28.0-32.0); MEAN CORPUSCULAR VOLUME 95.3 fL (80.0-94.0); MEAN PLATELET VOLUME 8.3 fl (7.4-10.4); MONOCYTES % 11.6 % (2.0-8.0); PLATELET 416 x1000/uL (130-400); RED CELL DISTRIBUTION WIDTH 15.3 % (11.6-14.6)
[2018-03-20 22:08] LABS: CHLORIDE 105 mEq/L (98-107)
[2018-03-20 22:09] LABS: INR 1.1; PARTIAL THROMBOPLASTIN TIME 28.2 sec (23.4-31.0); PROTHROMBIN TIME 10.7 sec (9.1-11.1)
[2018-03-21] VITALS: BP 128/78
[2018-03-21] MEDS: HYDROCODONE/ACETAMINOPHEN 10/325MG TABLET PO PRN ×2 (03:23→17:31)
[2018-03-21] MEDS: IPRATROPIUM/ALBUTEROL 0.5-3(2.5)MG/3ML NEB HHN PRN ×2 (03:49→21:27)
[2018-03-21 04:00] VITALS: BP 115/78
[2018-03-21 06:28] LABS: CHLORIDE 105 mEq/L (98-107)
[2018-03-21 08:00] VITALS: BP 113/74
[2018-03-21] MEDS: BUDESONIDE 0.5MG/2ML NEB HHN SCH ×2 (09:16→21:27)
[2018-03-21] MEDS: IPRATROPIUM BROMIDE (0.02%) 0.5MG/2.5ML NEB HHN SCH ×2 (09:17→14:22)
[2018-03-21 12:30] VITALS: BP 118/80
[2018-03-21] MEDS ORDERED: ALBUTEROL (0.083%) 2.5MG/3ML NEB ONE (15:13)
[2018-03-21 16:23] VITALS: BP 118/72
[2018-03-21] MEDS: AZITHROMYCIN 500 MG TABLET PO SCH (16:59)
[2018-03-21 20:00] VITALS: BP 136/71
[2018-03-22] VITALS: BP 115/73
[2018-03-22] MEDS: HYDROCODONE/ACETAMINOPHEN 10/325MG TABLET PO PRN ×4 (01:58→20:59)
[2018-03-22] MEDS: IPRATROPIUM BROMIDE (0.02%) 0.5MG/2.5ML NEB HHN SCH ×4 (02:02→20:26)
[2018-03-22 04:00] VITALS: BP 105/52
[2018-03-22 07:59] VITALS: BP 119/60
[2018-03-22] MEDS: BUDESONIDE 0.5MG/2ML NEB HHN SCH ×2 (09:24→20:25)
[2018-03-22 12:00] VITALS: BP 148/79
[2018-03-22 16:00] VITALS: BP 139/90
[2018-03-22 20:00] VITALS: BP 115/82
[2018-03-23] VITALS (30 sets, daily range): BP systolic 102–168; BP diastolic 32–100
[2018-03-23] MEDS: IPRATROPIUM BROMIDE (0.02%) 0.5MG/2.5ML NEB HHN SCH ×3 (01:00→13:01)
[2018-03-23 07:18] LABS: CHLORIDE 104 mEq/L (98-107)
[2018-03-23 07:27] LABS: BASOPHILS % 0.7 % (0.0-2.0); EOSINOPHILS % 5.3 % (0.0-5.0); HEMATOCRIT. 40.6 % (42.0-52.0); HEMOGLOBIN. 13.5 g/dL (14.0-18.0); LYMPHOCYTES % 21.7 % (20.0-50.0); MEAN CORPUSCULAR HEMOGLOBIN 31.3 pg (28.0-32.0); MEAN PLATELET VOLUME 8.6 fl (7.4-10.4); MONOCYTES % 13.7 % (2.0-8.0); NEUTROPHILS % 58.6 % (40.0-76.0); PLATELET 385 x1000/uL (130-400); RED BLOOD CELL COUNT 4.32 mill/uL (4.7-6.1); RED CELL DISTRIBUTION WIDTH 14.7 % (11.6-14.6)
[2018-03-23] MEDS: BUDESONIDE 0.5MG/2ML NEB HHN SCH (08:36)
[2018-03-23] MEDS ORDERED: BUPIVACAINE/EPINEPH/PF 0.25%/0.0005 10ML ONE (12:20)
[2018-03-23] MEDS ORDERED: BACITRACIN 50,000 UNITS/VIAL ONE (12:20)
[2018-03-23] MEDS ORDERED: NORMAL SALINE 0.9% 10 ML SYR ONE (12:20)
[2018-03-23] MEDS ORDERED: TETRACAINE/BENZOCAINE/BUTAMBEN 20 GM SPRAY MM ONE (12:21)
[2018-03-23] MEDS ORDERED: TALC 3 GM VIAL IX ONE (12:30)
[2018-03-23] MEDS ORDERED: FENTANYL CITRATE/PF 50MCG/ML 2ML VIAL ONE ×3 (12:41→16:50)
[2018-03-23] MEDS ORDERED: PROPOFOL 200MG/20ML VIAL IV ONE (12:42)
[2018-03-23] MEDS ORDERED: ROCURONIUM BROMIDE 10MG/ML VIAL 5ML IV ONE (12:42)
[2018-03-23] MEDS ORDERED: NEOSTIGMINE METHYLSULFATE 1MG/ML 10 ML VIAL ONE (12:42)
[2018-03-23] MEDS ORDERED: GLYCOPYRROLATE 0.2 MG/ML 2ML VIAL ONE (12:43)
[2018-03-23] MEDS ORDERED: MIDAZOLAM HCL 2 MG/2 ML VIAL ONE (12:43)
[2018-03-23] MEDS ORDERED: SUCCINYLCHOLINE CHLORIDE 200MG/10ML IV ONE (12:54)
[2018-03-23] MEDS ORDERED: KETOROLAC 30MG/ML VIAL ONE (15:09)
[2018-03-23] MEDS ORDERED: LABETALOL HCL 5MG/ML VIAL 20ML IV ONE (15:20)
[2018-03-23] MEDS ORDERED: MEPERIDINE HCL/PF 25MG/ML CPJ IV PRN (15:45)
[2018-03-23] MEDS ORDERED: HYDROMORPHONE HCL/PF 2MG/ML CPJ IV PRN (15:45)
[2018-03-23] MEDS ORDERED: ONDANSETRON HCL 4MG/2ML INJ IV PRN (15:45)
[2018-03-23] MEDS ORDERED: MORPHINE SULFATE 4 MG/ML CPJ (NOT FOR IM USE) IV PRN (15:45)
[2018-03-23] MEDS ORDERED: FENTANYL CITRATE/PF 50MCG/ML 2ML VIAL IV PRN (15:45)
[2018-03-23] MEDS ORDERED: SKIN ADHESIVE 0.7 GM EA TOP ONE (16:21)
[2018-03-23] MEDS: HYDROMORPHONE HCL/PF 2MG/ML CPJ IV PRN ×2 (18:46→21:02)
[2018-03-23] MEDS: SODIUM CHLORIDE 0.9% 1,000 ML IV SCH (18:58)
[2018-03-23 19:02] LABS: HEMATOCRIT. 41.1 % (42.0-52.0); HEMOGLOBIN. 13.2 g/dL (14.0-18.0); MEAN CORPUSCULAR HEMOGLOBIN 30.3 pg (28.0-32.0); MEAN CORPUSCULAR VOLUME 94.4 fL (80.0-94.0); MEAN PLATELET VOLUME 8.2 fl (7.4-10.4); PLATELET 382 x1000/uL (130-400); RED BLOOD CELL COUNT 4.35 mill/uL (4.7-6.1)
[2018-03-23 19:09] LABS: CHLORIDE 104 mEq/L (98-107)
[2018-03-23 19:26] LABS: PLATELET ESTIMATE NORMAL
[2018-03-24] VITALS (52 sets, daily range): BP systolic 74–150; BP diastolic 39–79
[2018-03-24] MEDS: HYDROMORPHONE HCL/PF 2MG/ML CPJ IV PRN ×7 (00:29→20:57)
[2018-03-24] MEDS: IPRATROPIUM BROMIDE (0.02%) 0.5MG/2.5ML NEB HHN SCH ×5 (00:59→20:53)
[2018-03-24] MEDS: BUDESONIDE 0.5MG/2ML NEB HHN SCH ×3 (00:59→20:46)
[2018-03-24 06:17] LABS: HEMATOCRIT. 39.2 % (42.0-52.0); HEMOGLOBIN. 12.7 g/dL (14.0-18.0); MEAN CORPUSCULAR HEMOGLOBIN 30.5 pg (28.0-32.0); MEAN CORPUSCULAR VOLUME 93.9 fL (80.0-94.0); MEAN PLATELET VOLUME 8.8 fl (7.4-10.4); PLATELET 388 x1000/uL (130-400); RED BLOOD CELL COUNT 4.17 mill/uL (4.7-6.1); RED CELL DISTRIBUTION WIDTH 14.9 % (11.6-14.6)
[2018-03-24 06:24] LABS: CHLORIDE 104 mEq/L (98-107)
[2018-03-24] MEDS: SODIUM CHLORIDE 0.9% 1,000 ML IV SCH ×2 (07:50→20:48)
[2018-03-24 14:06] LABS: PLATELET ESTIMATE NORMAL
[2018-03-24] MEDS: IPRATROPIUM/ALBUTEROL 0.5-3(2.5)MG/3ML NEB HHN PRN (16:12)
[2018-03-25] VITALS (17 sets, daily range): BP systolic 103–130; BP diastolic 47–98
[2018-03-25] MEDS: HYDROMORPHONE HCL/PF 2MG/ML CPJ IV PRN ×6 (00:39→23:26)
[2018-03-25] MEDS: IPRATROPIUM BROMIDE (0.02%) 0.5MG/2.5ML NEB HHN SCH ×4 (02:26→20:27)
[2018-03-25 05:56] LABS: HEMATOCRIT. 37.7 % (42.0-52.0); HEMOGLOBIN. 12.2 g/dL (14.0-18.0); MEAN CORPUSCULAR HEMOGLOBIN 30.7 pg (28.0-32.0); MEAN PLATELET VOLUME 8.9 fl (7.4-10.4); PLATELET 321 x1000/uL (130-400); RED BLOOD CELL COUNT 3.97 mill/uL (4.7-6.1); RED CELL DISTRIBUTION WIDTH 15.1 % (11.6-14.6)
[2018-03-25 06:19] LABS: CHLORIDE 105 mEq/L (98-107)
[2018-03-25] MEDS: BUDESONIDE 0.5MG/2ML NEB HHN SCH ×2 (08:50→20:27)
[2018-03-25 10:21] LABS: PLATELET ESTIMATE NORMAL
[2018-03-25] MEDS: SODIUM CHLORIDE 0.9% 1,000 ML IV SCH (13:44)
[2018-03-26] VITALS (24 sets, daily range): BP systolic 94–132; BP diastolic 43–84
[2018-03-26] MEDS: IPRATROPIUM BROMIDE (0.02%) 0.5MG/2.5ML NEB HHN SCH ×4 (02:16→20:14)
[2018-03-26] MEDS: HYDROMORPHONE HCL/PF 2MG/ML CPJ IV PRN ×3 (02:25→20:38)
[2018-03-26] MEDS: SODIUM CHLORIDE 0.9% 1,000 ML IV SCH ×2 (02:25→15:43)
[2018-03-26 07:03] LABS: HEMATOCRIT. 35.4 % (42.0-52.0); HEMOGLOBIN. 11.4 g/dL (14.0-18.0); MEAN CORPUSCULAR HEMOGLOBIN 30.4 pg (28.0-32.0); MEAN PLATELET VOLUME 8.5 fl (7.4-10.4); PLATELET 304 x1000/uL (130-400); RED BLOOD CELL COUNT 3.76 mill/uL (4.7-6.1); RED CELL DISTRIBUTION WIDTH 15.1 % (11.6-14.6)
[2018-03-26 07:16] LABS: CHLORIDE 104 mEq/L (98-107)
[2018-03-26 08:01] LABS: PLATELET ESTIMATE NORMAL
[2018-03-26] MEDS: BUDESONIDE 0.5MG/2ML NEB HHN SCH ×2 (08:13→20:13)
[2018-03-27] VITALS (24 sets, daily range): BP systolic 98–147; BP diastolic 38–97
[2018-03-27] MEDS: IPRATROPIUM BROMIDE (0.02%) 0.5MG/2.5ML NEB HHN SCH ×5 (02:01→22:08)
[2018-03-27] MEDS: SODIUM CHLORIDE 0.9% 1,000 ML IV SCH (02:30)
[2018-03-27 04:50] LABS: HEMATOCRIT. 33.6 % (42.0-52.0); HEMOGLOBIN. 10.9 g/dL (14.0-18.0); MEAN CORPUSCULAR HEMOGLOBIN 30.4 pg (28.0-32.0); MEAN PLATELET VOLUME 8.6 fl (7.4-10.4); PLATELET 311 x1000/uL (130-400); RED BLOOD CELL COUNT 3.58 mill/uL (4.7-6.1); RED CELL DISTRIBUTION WIDTH 14.9 % (11.6-14.6)
[2018-03-27 04:56] LABS: CHLORIDE 104 mEq/L (98-107)
[2018-03-27] MEDS: HYDROMORPHONE HCL/PF 2MG/ML CPJ IV PRN ×4 (06:40→20:04)
[2018-03-27 07:30] LABS: PLATELET ESTIMATE NORMAL
[2018-03-27] MEDS: BUDESONIDE 0.5MG/2ML NEB HHN SCH ×2 (08:42→22:07)
[2018-03-27] MEDS ORDERED: DOCUSATE SODIUM 250MG CAPSULE PO NR (12:00)
[2018-03-27] MEDS ORDERED: BISACODYL 5MG TABLET PO PRN (12:00)
[2018-03-28] VITALS (12 sets, daily range): BP systolic 97–140; BP diastolic 47–93
[2018-03-28] MEDS: IPRATROPIUM/ALBUTEROL 0.5-3(2.5)MG/3ML NEB HHN PRN (01:34)
[2018-03-28] MEDS: HYDROMORPHONE HCL/PF 2MG/ML CPJ IV PRN ×3 (02:11→18:21)
[2018-03-28] MEDS: DOCUSATE SODIUM 250MG CAPSULE PO SCH (08:07)
[2018-03-28] MEDS: BUDESONIDE 0.5MG/2ML NEB HHN SCH ×2 (09:37→21:19)
[2018-03-28] MEDS: IPRATROPIUM BROMIDE (0.02%) 0.5MG/2.5ML NEB HHN SCH ×3 (09:37→21:19)
[2018-03-28] MEDS: HYDROCODONE/ACETAMINOPHEN 5/325MG TABLET PO PRN (22:02)
[2018-03-29] VITALS (12 sets, daily range): BP systolic 114–139; BP diastolic 58–95
[2018-03-29] MEDS: IPRATROPIUM BROMIDE (0.02%) 0.5MG/2.5ML NEB HHN SCH ×4 (02:41→21:15)
[2018-03-29] MEDS: MORPHINE SULFATE 4 MG/ML CPJ (NOT FOR IM USE) IV PRN ×3 (02:53→19:49)
[2018-03-29 07:42] LABS: HEMATOCRIT. 32.3 % (42.0-52.0); HEMOGLOBIN. 10.6 g/dL (14.0-18.0); MEAN CORPUSCULAR HEMOGLOBIN 30.2 pg (28.0-32.0); MEAN PLATELET VOLUME 8.4 fl (7.4-10.4); PLATELET 365 x1000/uL (130-400); RED BLOOD CELL COUNT 3.51 mill/uL (4.7-6.1); RED CELL DISTRIBUTION WIDTH 15.1 % (11.6-14.6)
[2018-03-29 08:07] LABS: CHLORIDE 101 mEq/L (98-107)
[2018-03-29] MEDS: BUDESONIDE 0.5MG/2ML NEB HHN SCH ×2 (08:42→21:13)
[2018-03-29] MEDS: DOCUSATE SODIUM 250MG CAPSULE PO SCH (09:06)
[2018-03-29] MEDS: IPRATROPIUM/ALBUTEROL 0.5-3(2.5)MG/3ML NEB HHN PRN (21:13)
[2018-03-29 21:31] LABS: PLATELET ESTIMATE NORMAL
[2018-03-29] MEDS: GUAIFENESIN 600MG ER TABLET PO SCH (22:09)
[2018-03-30] VITALS (12 sets, daily range): BP systolic 116–140; BP diastolic 59–94
[2018-03-30] MEDS: MORPHINE SULFATE 4 MG/ML CPJ (NOT FOR IM USE) IV PRN ×2 (01:45→08:03)
[2018-03-30] MEDS: IPRATROPIUM BROMIDE (0.02%) 0.5MG/2.5ML NEB HHN SCH ×4 (02:01→20:51)
[2018-03-30] MEDS: DOCUSATE SODIUM 250MG CAPSULE PO SCH (08:03)
[2018-03-30] MEDS: GUAIFENESIN 600MG ER TABLET PO SCH ×2 (08:03→20:48)
[2018-03-30] MEDS: BUDESONIDE 0.5MG/2ML NEB HHN SCH ×2 (08:29→20:51)
[2018-03-30] MEDS ORDERED: BENZ-16 MT (11:52)
[2018-03-30] MEDS: HYDROCODONE/ACETAMINOPHEN 5/325MG TABLET PO PRN ×2 (13:16→19:20)
[2018-03-31] VITALS (12 sets, daily range): BP systolic 122–154; BP diastolic 64–88
[2018-03-31] MEDS: IPRATROPIUM BROMIDE (0.02%) 0.5MG/2.5ML NEB HHN SCH ×4 (01:36→21:09)
[2018-03-31] MEDS: GUAIFENESIN 600MG ER TABLET PO SCH ×2 (08:03→22:07)
[2018-03-31] MEDS: DOCUSATE SODIUM 250MG CAPSULE PO SCH (08:03)
[2018-03-31] MEDS: BUDESONIDE 0.5MG/2ML NEB HHN SCH ×2 (08:41→21:10)
[2018-03-31] MEDS: HYDROCODONE/ACETAMINOPHEN 5/325MG TABLET PO PRN (13:11)
[2018-04-01] VITALS (9 sets, daily range): BP systolic 114–148; BP diastolic 67–90
[2018-04-01] MEDS: IPRATROPIUM BROMIDE (0.02%) 0.5MG/2.5ML NEB HHN SCH ×3 (01:20→20:33)
[2018-04-01] MEDS: IPRATROPIUM/ALBUTEROL 0.5-3(2.5)MG/3ML NEB HHN PRN ×2 (04:42→07:37)
[2018-04-01] MEDS: GUAIFENESIN 600MG ER TABLET PO SCH ×2 (05:10→20:42)
[2018-04-01] MEDS: DOCUSATE SODIUM 250MG CAPSULE PO SCH (09:47)
[2018-04-01] MEDS: HYDROCODONE/ACETAMINOPHEN 5/325MG TABLET PO PRN ×2 (09:50→17:50)
[2018-04-01] MEDS: BUDESONIDE 0.5MG/2ML NEB HHN SCH ×2 (13:23→20:33)
== END 2018-04-01 21:30 | DRG 163 ==
LOC: ER 11:14 → MICUSO 12:28 → EDBEDREQSVC 12:32 → EDBEDREQTM 12:32 → EDBEDREQ 12:32 → ENRESERV 13:03 → 8WST 03-20 12:15 → MICUSO 03-23 17:03 → 3WST 03-27 21:34
PROVIDERS: ADMIT Internal Medicine; ATTEND Internal Medicine
PROC: 0W9B3ZZ Drainage of Left Pleural Cavity, Percutaneous Approach (ICD-10-PCS; 2018-03-19)
PROC: 0W9930Z Drainage of Right Pleural Cavity with Drainage Device, Percutaneous Approach (ICD-10-PCS; 2018-03-21)
PROC: 0BBF0ZZ Excision of Right Lower Lung Lobe, Open Approach (ICD-10-PCS; principal; 2018-03-23)
PROC: 0BBF0ZZ Excision of Right Lower Lung Lobe, Open Approach (ICD-10-PCS; 2018-03-23)
PROC: 0BBD0ZZ Excision of Right Middle Lung Lobe, Open Approach (ICD-10-PCS; 2018-03-23)
PROC: 0BB Respiratory System, Excision (ICD-10-PCS; 2018-03-23)
PROC: 0BNF0ZZ Release Right Lower Lung Lobe, Open Approach (ICD-10-PCS; 2018-03-23)
PROC: 0BJK4ZZ Inspection of Right Lung, Percutaneous Endoscopic Approach (ICD-10-PCS; 2018-03-23)
PROC: 0WB80ZZ Excision of Chest Wall, Open Approach (ICD-10-PCS; 2018-03-23)
PROC: 3E0T3BZ Introduction of Anesthetic Agent into Peripheral Nerves and Plexi, Percutaneous Approach (ICD-10-PCS; 2018-04-01)
DX: J96.21 Acute and chronic respiratory failure with hypoxia (principal); J18.9 Pneumonia, unspecified organism; J91.8 Pleural effusion in other conditions classified elsewhere; J98.19 Other pulmonary collapse; C34.2 Malignant neoplasm of middle lobe, bronchus or lung; Z87.01 Personal history of pneumonia (recurrent); Z99.81 Dependence on supplemental oxygen; R91.8 Other nonspecific abnormal finding of lung field; J44.9 Chronic obstructive pulmonary disease, unspecified; E78.5 Hyperlipidemia, unspecified; E78.00 Pure hypercholesterolemia, unspecified; F17.200 Nicotine dependence, unspecified, uncomplicated; M19.90 Unspecified osteoarthritis, unspecified site; I11.9 Hypertensive heart disease without heart failure
CPT/HCPCS: 32555; 36415; 36600; 71045; 71270; 80048; 82375; 82805; 83605; 83880; 84145; 84484; 85018; 86850; 86900; 86920; 88108; 88305; 88307; 88331; 93005; 93970; 94003; 94060; 94640; 94727; 94729; 96365; 96375; 97116; 97162; 97166; 97530; 97535; 99291; J0171; J0330; J0690; J1170; J1885; J2250; J2270; J2405; J2704; J2710; J2930; J3010; J3475; J3490; J7030; J7042; J7611; J7620; J7626; Q9967

== ENCOUNTER 2018-05-24 16:57 | Inpatient (IN) | payer MEDICARE, MEDICAID ==
[~2018-05-24] VITALS: Ht 172.7 cm; Wt 56.7 kg
[~2018-05-24 16:57] MED LIST changes: -AMLO2.5T45 MT; +AMLO5TAB88 PO; +ASCO-339 MT; +BENZ-16 MT; +MAGN400C PO; +MIRT15TA6 PO; +MOME13HF INH; -NAPR-679 MT
[2018-05-24] MEDS ORDERED: MORPHINE SULFATE 4 MG/ML CPJ (NOT FOR IM USE) IV STA (17:28)
[2018-05-24] MEDS ORDERED: SODIUM CHLORIDE 0.9% 1000ML BAG (SEPSIS BOLUS) IV ONE (17:30)
[2018-05-24] MEDS ORDERED: PIPERACILLIN/TAZ 3.375G PREMIX 50 ML IV ONE (17:30)
[2018-05-24 17:57] LABS: BASOPHILS % 0.7 % (0.0-2.0); EOSINOPHILS % 3.4 % (0.0-5.0); HEMATOCRIT. 42.6 % (42.0-52.0); HEMOGLOBIN. 13.8 g/dL (14.0-18.0); LYMPHOCYTES % 23.9 % (20.0-50.0); MEAN CORPUSCULAR HEMOGLOBIN 27.7 pg (28.0-32.0); MEAN CORPUSCULAR VOLUME 85.9 fL (80.0-94.0); MEAN PLATELET VOLUME 8.7 fl (7.4-10.4); MONOCYTES % 9.3 % (2.0-8.0); NEUTROPHILS % 62.7 % (40.0-76.0); PLATELET 357 x1000/uL (130-400); RED BLOOD CELL COUNT 4.96 mill/uL (4.7-6.1); RED CELL DISTRIBUTION WIDTH 16.8 % (11.6-14.6)
[2018-05-24 18:02] LABS: CHLORIDE 105 mEq/L (98-107)
[2018-05-24 18:04] LABS: INR 1.1
[2018-05-24 18:11] LABS: BG BASE EXCESS -3.4 mmol/L (-2.0-2.0); BG CARBOXYHEMOGLOBIN 0.2 % (0.5-1.5); BG DEOXYHEMOGLOBIN 5.1 % (0.0-5.0); BG FRACTION INSPIRED OXYGEN 100; BG METHEMOGLOBIN 0.1 % (0.0-1.5); BG OXYGEN SATURATION 94.9 % (92.0-98.5); BG OXYHEMOGLOBIN 94.6 % (94.0-97.0); BG PCO2 40.8 mmHg (35.0-45.0); BG PH 7.349 (7.350-7.450); BG PO2 77.5 mmHg (75.0-100.0); BG SAMPLE SITE RIGHT BRACHIAL; BG TOTAL HEMOGLOBIN 13.3 g/dL (12.0-18.0); BG VENT MODE MASK - NRB
[2018-05-24 19:21] LABS: CLARITY URINE CLEAR (CLEAR); COLOR URINE YELLOW (YELLOW); KETONES URINE TRACE (NEGATIVE); LEUKOCYTE ESTERASE URINE NEGATIVE (NEGATIVE); NITRITE URINE NEGATIVE (NEGATIVE); OCCULT BLOOD URINE NEGATIVE (NEGATIVE); PROTEIN URINE NEGATIVE (NEGATIVE); SPECIFIC GRAVITY URINE 1.039 (1.005-1.030)
[2018-05-24 22:45] VITALS: BP 137/72
[2018-05-24 23:00] VITALS: BP 137/72
[2018-05-25] VITALS (10 sets, daily range): BP systolic 119–160; BP diastolic 66–73
[2018-05-25] MEDS ORDERED: BENZ100C86 PO (01:35)
[2018-05-25] MEDS ORDERED: HYDR-4001 PO (01:47)
[2018-05-25] MEDS ORDERED: PROSOL IH (01:54)
[2018-05-25] MEDS ORDERED: TRAM50TA PO (01:54)
[2018-05-25] MEDS ORDERED: NAPR-679 PO (02:02)
[2018-05-25] MEDS ORDERED: BUDE0.25 IH (02:10)
[2018-05-25] MEDS ORDERED: BUDE6HFA INH (02:10)
[2018-05-25] MEDS ORDERED: MIRT15TA7 PO (02:10)
[2018-05-25] MEDS ORDERED: [UNRECOGNIZED DRUG - OTHER] PO (02:10)
[2018-05-25] MEDS ORDERED: DOCU250C19 PO (02:10)
[2018-05-25] MEDS ORDERED: IBUP-2030 PO (02:12)
[2018-05-25] MEDS ORDERED: MIRTAZAPINE 15 MG PO SCH (04:15)
[2018-05-25] MEDS ORDERED: MEDICATION NOT ON FORMULARY EA (Tramadol Hcl 50 MG) PO SCH (04:15)
[2018-05-25] MEDS ORDERED: IPRATROPIUM/ALBUTEROL 0.5-3(2.5)MG/3ML NEB HHN PRN (04:15)
[2018-05-25] MEDS: IPRATROPIUM/ALBUTEROL 0.5-3(2.5)MG/3ML NEB HHN SCH ×4 (08:15→20:25)
[2018-05-25] MEDS: BENAZEPRIL 10MG TABLET PO SCH (09:00)
[2018-05-25] MEDS ORDERED: MEDICATION NOT ON FORMULARY EA (Allopurinol 300 MG) PO SCH (09:00)
[2018-05-25] MEDS ORDERED: DOCUSATE SODIUM 250 MG PO SCH (09:00)
[2018-05-25] MEDS ORDERED: MEDICATION NOT ON FORMULARY EA (Benazepril Hcl 40 MG) PO SCH (09:00)
[2018-05-25] MEDS: HYDROCODONE/ACETAMINOPHEN 5/325MG TABLET PO PRN ×2 (09:29→19:03)
[2018-05-25] MEDS: DOCUSATE SODIUM 250MG CAPSULE PO SCH (09:30)
[2018-05-25] MEDS: ASPIRIN 81MG TABLET PO SCH (09:30)
[2018-05-25] MEDS: ALLOPURINOL 300 MG TABLET PO SCH (09:34)
[2018-05-25] MEDS: ENOXAPARIN 40MG/0.4ML SYR SUBCUT SCH (09:35)
[2018-05-25] MEDS ORDERED: METHYLPREDNISOLONE SOD SUCC 125 MG/2 ML VIAL IV NR (18:45)
[2018-05-25] MEDS ORDERED: [UNRECOGNIZED DRUG - OTHER] PO SCH (21:00)
[2018-05-25] MEDS: MIRTAZAPINE 15 MG PO SCH (21:56)
[2018-05-25] MEDS: ATORVASTATIN CALCIUM 40MG TABLET PO SCH (21:57)
[2018-05-25] MEDS: TRAMADOL 50MG TABLET PO PRN (22:01)
[2018-05-26] VITALS: BP 124/76
[2018-05-26] MEDS: IPRATROPIUM/ALBUTEROL 0.5-3(2.5)MG/3ML NEB HHN SCH ×5 (01:03→21:25)
[2018-05-26 04:00] VITALS: BP 109/72
[2018-05-26] MEDS: METHYLPREDNISOLONE SOD SUCC 40 MG/ML VIAL IV SCH ×3 (05:59→21:01)
[2018-05-26 08:00] VITALS: BP 118/69
[2018-05-26] MEDS: HYDROCODONE/ACETAMINOPHEN 5/325MG TABLET PO PRN ×2 (09:39→21:01)
[2018-05-26] MEDS: ASPIRIN 81MG TABLET PO SCH (09:40)
[2018-05-26] MEDS: DOCUSATE SODIUM 250MG CAPSULE PO SCH (09:42)
[2018-05-26] MEDS: ALLOPURINOL 300 MG TABLET PO SCH (09:47)
[2018-05-26] MEDS: BENAZEPRIL 10MG TABLET PO SCH (09:48)
[2018-05-26] MEDS: ENOXAPARIN 40MG/0.4ML SYR SUBCUT SCH (09:54)
[2018-05-26 12:00] VITALS: BP 109/66
[2018-05-26] MEDS: TRAMADOL 50MG TABLET PO PRN (14:32)
[2018-05-26 16:00] VITALS: BP 130/71
[2018-05-26] MEDS ORDERED: GUAIFENESIN-DM 200MG-20MG/10ML UDC PO PRN (16:45)
[2018-05-26] MEDS ORDERED: IOHEXOL-350 100 ML BOTTLE ONE (19:41)
[2018-05-26 20:00] VITALS: BP 154/73
[2018-05-26] MEDS: ATORVASTATIN CALCIUM 40MG TABLET PO SCH (20:59)
[2018-05-26] MEDS: MIRTAZAPINE 15 MG PO SCH (20:59)
[2018-05-27] VITALS (7 sets, daily range): BP systolic 108–150; BP diastolic 64–82
[2018-05-27] MEDS: IPRATROPIUM/ALBUTEROL 0.5-3(2.5)MG/3ML NEB HHN SCH ×4 (02:39→14:04)
[2018-05-27] MEDS: METHYLPREDNISOLONE SOD SUCC 40 MG/ML VIAL IV SCH ×2 (05:49→16:05)
[2018-05-27] MEDS: ASPIRIN 81MG TABLET PO SCH (09:20)
[2018-05-27] MEDS: ALLOPURINOL 300 MG TABLET PO SCH (09:20)
[2018-05-27] MEDS: ENOXAPARIN 40MG/0.4ML SYR SUBCUT SCH (09:20)
[2018-05-27] MEDS: DOCUSATE SODIUM 250MG CAPSULE PO SCH (09:20)
[2018-05-27] MEDS: HYDROCODONE/ACETAMINOPHEN 5/325MG TABLET PO PRN ×2 (09:30→18:05)
[2018-05-27] MEDS: BENAZEPRIL 10MG TABLET PO SCH (13:01)
[2018-05-27] MEDS ORDERED: GADOBENATE DIMEGLUMINE 529 MG/ML 10ML IV ONE (15:05)
[2018-05-27] MEDS ORDERED: LEVETIRACETAM 500MG TABLET PO SCH (21:00)
== END 2018-05-27 20:55 | disposition home or self-care (01) | DRG 871 ==
LOC: ER 16:57 → 7WST 20:59 → EDBEDREQTM 21:03 → EDBEDREQ 21:03 → EDBEDREQSVC 21:03 → ENRESERV 21:18 → 7WST 22:46
PROVIDERS: ADMIT Internal Medicine; ATTEND Internal Medicine
PROC: 4A00X4Z Measurement of Central Nervous Electrical Activity, External Approach (ICD-10-PCS; principal; 2018-05-27)
DX: A41.9 Sepsis, unspecified organism (principal); J96.01 Acute respiratory failure with hypoxia; J18.9 Pneumonia, unspecified organism; I63.81 Other cerebral infarction due to occlusion or stenosis of small artery; C34.90 Malignant neoplasm of unspecified part of unspecified bronchus or lung; C79.31 Secondary malignant neoplasm of brain; E46 Unspecified protein-calorie malnutrition; N17.9 Acute kidney failure, unspecified; J44.1 Chronic obstructive pulmonary disease with (acute) exacerbation; J44.0 Chronic obstructive pulmonary disease with (acute) lower respiratory infection; E78.5 Hyperlipidemia, unspecified; M19.90 Unspecified osteoarthritis, unspecified site; J44.9 Chronic obstructive pulmonary disease, unspecified; E78.00 Pure hypercholesterolemia, unspecified; I50.9 Heart failure, unspecified; Z87.891 Personal history of nicotine dependence; Z99.81 Dependence on supplemental oxygen
CPT/HCPCS: 36415; 36600; 70551; 70552; 71045; 71250; 71275; 74176; 82375; 82805; 83605; 83880; 84145; 84484; 87804; 93005; 93880; 94640; 96365; 97162; 97166; 99291; A9577; J1650; J2270; J2543; J2920; J2930; J7030; J7620; Q9967

== ENCOUNTER 2018-06-14 12:33 | Inpatient (IN) | payer MEDICARE, MEDICAID ==
[~2018-06-14] VITALS: Ht 177.8 cm; Wt 75.7 kg
[2018-06-14] MEDS: INSULIN LISPRO 100 UNITS/ML SUBCUT SCH (01:00)
[2018-06-14] MEDS: BLOOD SUGAR DIAGNOSTIC STRIP TEST SCH (01:00)
[~2018-06-14 12:33] MED LIST changes: +BENZ100C86 PO; +BUDE0.25 IH; +BUDE6HFA INH; +DOCU250C19 PO; +HYDR-4001 PO; +IBUP-2030 PO; -MIRT15TA6 PO; +MIRT15TA7 PO; +NAPR-679 PO; +PROSOL IH; +TRAM50TA PO; +[UNRECOGNIZED DRUG - OTHER] PO
[2018-06-14 13:10] LABS: BASOPHILS % 1.4 % (0.0-2.0); EOSINOPHILS % 0.8 % (0.0-5.0); HEMATOCRIT. 42.4 % (42.0-52.0); HEMOGLOBIN. 13.6 g/dL (14.0-18.0); LYMPHOCYTES % 17.7 % (20.0-50.0); MEAN CORPUSCULAR HEMOGLOBIN 27.2 pg (28.0-32.0); MEAN CORPUSCULAR VOLUME 84.8 fL (80.0-94.0); MEAN PLATELET VOLUME 8.9 fl (7.4-10.4); MONOCYTES % 6.3 % (2.0-8.0); NEUTROPHILS % 73.8 % (40.0-76.0); PLATELET 182 x1000/uL (130-400); RED CELL DISTRIBUTION WIDTH 18.2 % (11.6-14.6)
[2018-06-14 13:11] LABS: BG CARBOXYHEMOGLOBIN 1.2 % (0.5-1.5); BG DEOXYHEMOGLOBIN 19.5 % (0.0-5.0); BG HCO3 ACT 22.8 mmol/L (22.0-26.0); BG METHEMOGLOBIN 0.3 % (0.0-1.5); BG OXYGEN SATURATION 80.2 % (92.0-98.5); BG PCO2 35.4 mmHg (35.0-45.0); BG PH 7.427 (7.350-7.450); BG PO2 43.7 mmHg (75.0-100.0); BG SAMPLE SITE RIGHT BRACHIAL; BG TOTAL HEMOGLOBIN 14.3 g/dL (12.0-18.0); BG VENT MODE NASAL CANNULA
[2018-06-14 13:16] LABS: CHLORIDE 109 mEq/L (98-107)
[2018-06-14] MEDS ORDERED: SODIUM CHLORIDE 0.9% 1,000 ML IV ONE (13:41)
[2018-06-14] MEDS ORDERED: PIPERACILLIN/TAZ 3.375G PREMIX 50 ML IV ONE (13:45)
[2018-06-14] MEDS ORDERED: VANCOMYCIN 1 G PREMIX 200 ML IV ONE (13:45)
[2018-06-14] MEDS ORDERED: ALBUTEROL (0.083%) 2.5MG/3ML NEB HHN ONE (14:00)
[2018-06-14] MEDS ORDERED: MORPHINE SULFATE 4 MG/ML CPJ (NOT FOR IM USE) IV ONE (14:00)
[2018-06-14] MEDS ORDERED: METHYLPREDNISOLONE SOD SUCC 125 MG/2 ML VIAL IV ONE (14:00)
[2018-06-14] MEDS ORDERED: GUAIFENESIN 200MG/10ML SUGAR FREE UDC PO PRN (14:45)
[2018-06-14] MEDS ORDERED: ONDANSETRON HCL 4MG/2ML INJ IV PRN (14:45)
[2018-06-14] MEDS ORDERED: CLONIDINE 0.1MG TABLET PO PRN (14:45)
[2018-06-14] MEDS ORDERED: DIPHENHYDRAMINE 50MG/ML VIAL IV PRN (14:45)
[2018-06-14] MEDS ORDERED: DOCUSATE SODIUM 100MG CAPSULE PO PRN (14:45)
[2018-06-14] MEDS ORDERED: MAGNESIUM/ALUMINUM HYDROXIDE/SIMETHICONE 30ML UDC PO PRN (14:45)
[2018-06-14 15:08] LABS: PHOSPHORUS 4.3 mg/dL (2.5-4.9)
[2018-06-14] MEDS ORDERED: LEVOFLOXACIN 500MG PREMIX 100 ML IV NR (16:09)
[2018-06-14] MEDS ORDERED: AZITHROMYCIN 500MG in DEXTROSE 5% WATER 250ML IV SCH (16:10)
[2018-06-14] MEDS: HYDROCODONE/ACETAMINOPHEN 5/325MG TABLET PO PRN (18:10)
[2018-06-14] MEDS ORDERED: IOHEXOL-300 100 ML BOTTLE ONE (18:52)
[2018-06-14 22:00] VITALS: BP 112/63
[2018-06-14 23:00] VITALS: BP 112/63
[2018-06-14] MEDS ORDERED: DEXTROSE 50% WATER 50ML SYRINGE IV PRN (23:00)
[2018-06-15] VITALS (11 sets, daily range): BP systolic 86–126; BP diastolic 58–72
[2018-06-15 00:06] LABS: CREATINE KINASE MB FRACTION 2.8 ng/mL (0.5-3.6)
[2018-06-15 06:47] LABS: BASOPHILS % 0.3 % (0.0-2.0); LYMPHOCYTES % 13.6 % (20.0-50.0); MEAN CORPUSCULAR HEMOGLOBIN 26.9 pg (28.0-32.0); MEAN CORPUSCULAR VOLUME 84.4 fL (80.0-94.0); MEAN PLATELET VOLUME 8.6 fl (7.4-10.4); MONOCYTES % 3.1 % (2.0-8.0); PLATELET 227 x1000/uL (130-400); RED BLOOD CELL COUNT 4.27 mill/uL (4.7-6.1)
[2018-06-15] MEDS: BLOOD SUGAR DIAGNOSTIC STRIP TEST SCH ×4 (07:30→20:45)
[2018-06-15 07:35] LABS: CREATINE KINASE MB FRACTION 2.7 ng/mL (0.5-3.6)
[2018-06-15 07:40] LABS: CHLORIDE 111 mEq/L (98-107)
[2018-06-15 07:44] LABS: HEMOGLOBIN. 11.5 g/dL (14.0-18.0)
[2018-06-15 07:48] LABS: HDL CHOLESTEROL 49 mg/dL (40-59)
[2018-06-15 07:51] LABS: LDL CHOLESTEROL 42 mg/dL (5-100)
[2018-06-15] MEDS: INSULIN LISPRO 100 UNITS/ML SUBCUT SCH ×4 (08:00→20:45)
[2018-06-15] MEDS: HYDROCODONE/ACETAMINOPHEN 5/325MG TABLET PO PRN ×3 (09:05→20:44)
[2018-06-15] MEDS ORDERED: LEVOFLOXACIN 500MG PREMIX 100 ML IV SCH (15:00)
[2018-06-15] MEDS ORDERED: AZITHROMYCIN 500 MG in DEXT 5% WATER 250 ML IV SCH (16:00)
[2018-06-15] MEDS: MONTELUKAST SODIUM 10MG TABLET PO SCH (17:18)
[2018-06-15] MEDS ORDERED: AZITHROMYCIN 500MG in DEXTROSE 5% WATER 250ML IV SCH (18:30)
[2018-06-15] MEDS: CEFTRIAXONE 1 G PREMIX 50 ML IV SCH (18:43)
[2018-06-15] MEDS: IPRATROPIUM BROMIDE (0.02%) 0.5MG/2.5ML NEB HHN SCH (19:51)
[2018-06-15] MEDS: FLUTICASONE PROPIONATE 50MCG/SPRAY BOTTLE BOTHNSTRLS SCH (20:45)
[2018-06-15] MEDS: ACETYLCYSTEINE 100MG/ML 10% VIAL 4ML INH SCH (22:00)
[2018-06-15 23:30] LABS: CLARITY URINE CLEAR (CLEAR); COLOR URINE YELLOW (YELLOW); KETONES URINE TRACE (NEGATIVE); LEUKOCYTE ESTERASE URINE NEGATIVE (NEGATIVE); NITRITE URINE NEGATIVE (NEGATIVE); OCCULT BLOOD URINE NEGATIVE (NEGATIVE); PROTEIN URINE NEGATIVE (NEGATIVE); SPECIFIC GRAVITY URINE 1.033 (1.005-1.030); UROBILINOGEN URINE 0.2 E.U./dL (0.2-1.0)
[2018-06-16] VITALS (10 sets, daily range): BP systolic 93–135; BP diastolic 61–92
[2018-06-16] MEDS: ACETYLCYSTEINE 100MG/ML 10% VIAL 4ML INH SCH ×3 (00:12→08:00)
[2018-06-16] MEDS: IPRATROPIUM BROMIDE (0.02%) 0.5MG/2.5ML NEB HHN SCH ×5 (00:17→19:55)
[2018-06-16 06:32] LABS: CHLORIDE 108 mEq/L (98-107)
[2018-06-16 06:33] LABS: BASOPHILS % 0.8 % (0.0-2.0); EOSINOPHILS % 1.1 % (0.0-5.0); HEMATOCRIT. 39.9 % (42.0-52.0); HEMOGLOBIN. 12.5 g/dL (14.0-18.0); LYMPHOCYTES % 13.8 % (20.0-50.0); MEAN CORPUSCULAR HEMOGLOBIN 26.6 pg (28.0-32.0); MEAN CORPUSCULAR VOLUME 84.6 fL (80.0-94.0); MEAN PLATELET VOLUME 8.8 fl (7.4-10.4); MONOCYTES % 8.6 % (2.0-8.0); NEUTROPHILS % 75.7 % (40.0-76.0); PLATELET 242 x1000/uL (130-400); RED BLOOD CELL COUNT 4.72 mill/uL (4.7-6.1); RED CELL DISTRIBUTION WIDTH 18.4 % (11.6-14.6)
[2018-06-16] MEDS: BLOOD SUGAR DIAGNOSTIC STRIP TEST SCH ×4 (06:38→21:20)
[2018-06-16] MEDS: HYDROCODONE/ACETAMINOPHEN 5/325MG TABLET PO PRN (06:38)
[2018-06-16] MEDS: INSULIN LISPRO 100 UNITS/ML SUBCUT SCH ×4 (08:00→21:00)
[2018-06-16] MEDS: FLUTICASONE PROPIONATE 50MCG/SPRAY BOTTLE BOTHNSTRLS SCH ×2 (08:47→21:20)
[2018-06-16] MEDS ORDERED: MORPHINE SULFATE 4 MG/ML CPJ (NOT FOR IM USE) IV PRN (09:30)
[2018-06-16] MEDS ORDERED: HALOPERIDOL LACTATE 5MG/ML VIAL IM PRN (11:30)
[2018-06-16] MEDS ORDERED: LORAZEPAM 2MG/ML CPJ IV PRN (11:30)
[2018-06-16] MEDS: METHYLPREDNISOLONE SOD SUCC 40 MG/ML VIAL IV SCH ×2 (11:50→18:36)
[2018-06-16] MEDS: MORPHINE SULFATE 4 MG/ML CPJ (NOT FOR IM USE) IV PRN ×2 (14:15→18:54)
[2018-06-16] MEDS: CEFTRIAXONE 1 G PREMIX 50 ML IV SCH (17:44)
[2018-06-16] MEDS: MONTELUKAST SODIUM 10MG TABLET PO SCH (17:44)
[2018-06-16] MEDS: AZITHROMYCIN 500 MG in DEXT 5% WATER 250 ML IV SCH (21:39)
[2018-06-17] VITALS: BP 116/78
[2018-06-17] MEDS: IPRATROPIUM BROMIDE (0.02%) 0.5MG/2.5ML NEB HHN SCH ×6 (00:12→21:01)
[2018-06-17] MEDS: ACETYLCYSTEINE 100MG/ML 10% VIAL 4ML INH SCH ×3 (00:42→16:05)
[2018-06-17] MEDS: METHYLPREDNISOLONE SOD SUCC 40 MG/ML VIAL IV SCH ×3 (03:22→21:19)
[2018-06-17] MEDS: ACETAMINOPHEN 325MG TABLET PO PRN ×3 (03:48→17:49)
[2018-06-17 04:00] VITALS: BP 166/105
[2018-06-17] MEDS: BLOOD SUGAR DIAGNOSTIC STRIP TEST SCH ×4 (06:31→21:21)
[2018-06-17] MEDS: INSULIN LISPRO 100 UNITS/ML SUBCUT SCH ×4 (06:37→21:00)
[2018-06-17 06:43] LABS: BASOPHILS % 0.2 % (0.0-2.0); EOSINOPHILS % 0.1 % (0.0-5.0); HEMATOCRIT. 35.8 % (42.0-52.0); HEMOGLOBIN. 11.7 g/dL (14.0-18.0); LYMPHOCYTES % 13.3 % (20.0-50.0); MEAN CORPUSCULAR HEMOGLOBIN 27.4 pg (28.0-32.0); MEAN PLATELET VOLUME 8.8 fl (7.4-10.4); MONOCYTES % 1.8 % (2.0-8.0); NEUTROPHILS % 84.6 % (40.0-76.0); PLATELET 231 x1000/uL (130-400); RED BLOOD CELL COUNT 4.26 mill/uL (4.7-6.1); RED CELL DISTRIBUTION WIDTH 17.7 % (11.6-14.6)
[2018-06-17 07:23] LABS: CHLORIDE 105 mEq/L (98-107)
[2018-06-17 08:00] VITALS: BP 105/71
[2018-06-17] MEDS: FLUTICASONE PROPIONATE 50MCG/SPRAY BOTTLE BOTHNSTRLS SCH ×2 (09:11→21:20)
[2018-06-17 12:00] VITALS: BP 107/69
[2018-06-17 16:00] VITALS: BP 109/74
[2018-06-17] MEDS: MONTELUKAST SODIUM 10MG TABLET PO SCH (16:49)
[2018-06-17] MEDS: CEFTRIAXONE 1 G PREMIX 50 ML IV SCH (17:50)
[2018-06-17 20:00] VITALS: BP 103/69
[2018-06-17] MEDS: AZITHROMYCIN 500 MG in DEXT 5% WATER 250 ML IV SCH (21:20)
[2018-06-18 00:01] VITALS: BP 105/71
[2018-06-18 04:00] VITALS: BP 120/82
[2018-06-18] MEDS: IPRATROPIUM BROMIDE (0.02%) 0.5MG/2.5ML NEB HHN SCH ×4 (05:02→21:40)
[2018-06-18] MEDS: METHYLPREDNISOLONE SOD SUCC 40 MG/ML VIAL IV SCH ×2 (05:25→11:28)
[2018-06-18] MEDS: BLOOD SUGAR DIAGNOSTIC STRIP TEST SCH ×4 (06:00→20:08)
[2018-06-18] MEDS: INSULIN LISPRO 100 UNITS/ML SUBCUT SCH ×4 (07:34→20:09)
[2018-06-18 08:00] VITALS: BP 130/77
[2018-06-18] MEDS: IPRATROPIUM/ALBUTEROL 0.5-3(2.5)MG/3ML NEB HHN PRN (08:20)
[2018-06-18] MEDS: ACETYLCYSTEINE 100MG/ML 10% VIAL 4ML INH SCH ×2 (08:20→16:25)
[2018-06-18] MEDS: FLUTICASONE PROPIONATE 50MCG/SPRAY BOTTLE BOTHNSTRLS SCH (09:13)
[2018-06-18] MEDS: HYDROCODONE/ACETAMINOPHEN 5/325MG TABLET PO PRN (09:14)
[2018-06-18] MEDS: MORPHINE SULFATE 4 MG/ML CPJ (NOT FOR IM USE) IV PRN ×2 (11:28→17:20)
[2018-06-18 12:00] VITALS: BP 112/70
[2018-06-18 16:00] VITALS: BP 141/83
[2018-06-18] MEDS: MONTELUKAST SODIUM 10MG TABLET PO SCH (17:18)
[2018-06-18] MEDS: CEFTRIAXONE 1 G PREMIX 50 ML IV SCH (18:32)
[2018-06-18 20:00] VITALS: BP 126/79
[2018-06-18] MEDS: AZITHROMYCIN 500 MG in DEXT 5% WATER 250 ML IV SCH (22:26)
[2018-06-19] VITALS: BP 122/80
[2018-06-19] MEDS: MORPHINE SULFATE 4 MG/ML CPJ (NOT FOR IM USE) IV PRN ×3 (01:08→20:55)
[2018-06-19] MEDS: ACETYLCYSTEINE 100MG/ML 10% VIAL 4ML INH SCH ×3 (01:16→12:51)
[2018-06-19] MEDS: IPRATROPIUM BROMIDE (0.02%) 0.5MG/2.5ML NEB HHN SCH ×3 (01:20→20:14)
[2018-06-19 04:00] VITALS: BP 133/85
[2018-06-19] MEDS: BLOOD SUGAR DIAGNOSTIC STRIP TEST SCH ×4 (06:38→21:00)
[2018-06-19] MEDS: METHYLPREDNISOLONE SOD SUCC 40 MG/ML VIAL IV SCH ×2 (06:47→11:08)
[2018-06-19] MEDS ORDERED: GUAIFENESIN-DM 200MG-20MG/10ML UDC PO PRN (07:45)
[2018-06-19] MEDS: INSULIN LISPRO 100 UNITS/ML SUBCUT SCH (07:50)
[2018-06-19 08:00] VITALS: BP 134/86
[2018-06-19] MEDS: ACETAMINOPHEN 325MG TABLET PO PRN (08:25)
[2018-06-19] MEDS: IPRATROPIUM/ALBUTEROL 0.5-3(2.5)MG/3ML NEB HHN PRN ×3 (08:53→15:48)
[2018-06-19 12:00] VITALS: BP 136/75
[2018-06-19] MEDS: LIDOCAINE HCL 4% CREAM 76GM TUBE TP PRN ×2 (13:08→16:59)
[2018-06-19 16:00] VITALS: BP 115/59
[2018-06-19] MEDS: CEFTRIAXONE 1 G PREMIX 50 ML IV SCH (16:51)
[2018-06-19] MEDS: MONTELUKAST SODIUM 10MG TABLET PO SCH (16:51)
[2018-06-19 20:00] VITALS: BP 123/71
[2018-06-19] MEDS: AZITHROMYCIN 500 MG in DEXT 5% WATER 250 ML IV SCH (23:11)
[2018-06-20] VITALS: BP 133/78
[2018-06-20 04:00] VITALS: BP 141/84
[2018-06-20] MEDS: LIDOCAINE HCL 4% CREAM 76GM TUBE TP PRN ×2 (04:48→15:09)
[2018-06-20 05:39] LABS: BASOPHILS % 0.4 % (0.0-2.0); EOSINOPHILS % 0.2 % (0.0-5.0); HEMATOCRIT. 38.6 % (42.0-52.0); HEMOGLOBIN. 12.4 g/dL (14.0-18.0); LYMPHOCYTES % 8.4 % (20.0-50.0); MEAN CORPUSCULAR HEMOGLOBIN 26.9 pg (28.0-32.0); MEAN CORPUSCULAR VOLUME 83.9 fL (80.0-94.0); MEAN PLATELET VOLUME 8.9 fl (7.4-10.4); MONOCYTES % 13.2 % (2.0-8.0); NEUTROPHILS % 77.8 % (40.0-76.0); PLATELET 225 x1000/uL (130-400); RED CELL DISTRIBUTION WIDTH 18.4 % (11.6-14.6)
[2018-06-20] MEDS: HYDROCODONE/ACETAMINOPHEN 5/325MG TABLET PO PRN ×3 (06:22→23:41)
[2018-06-20] MEDS: BLOOD SUGAR DIAGNOSTIC STRIP TEST SCH ×4 (07:20→21:00)
[2018-06-20 08:00] VITALS: BP 144/90
[2018-06-20] MEDS: IPRATROPIUM BROMIDE (0.02%) 0.5MG/2.5ML NEB HHN SCH ×5 (08:54→20:13)
[2018-06-20] MEDS: ACETYLCYSTEINE 100MG/ML 10% VIAL 4ML INH SCH ×2 (08:55→16:37)
[2018-06-20 12:00] VITALS: BP 138/91
[2018-06-20] MEDS: PREDNISONE 20MG TABLET PO SCH (15:37)
[2018-06-20] MEDS: AZITHROMYCIN 500 MG TABLET PO SCH (15:38)
[2018-06-20 16:00] VITALS: BP 131/82
[2018-06-20] MEDS: MONTELUKAST SODIUM 10MG TABLET PO SCH (16:15)
[2018-06-20] MEDS: CEFTRIAXONE 1 G PREMIX 50 ML IV SCH (16:15)
[2018-06-20 20:00] VITALS: BP 141/80
[2018-06-21] MEDS: IPRATROPIUM BROMIDE (0.02%) 0.5MG/2.5ML NEB HHN SCH ×4 (00:13→21:10)
[2018-06-21] MEDS: ACETYLCYSTEINE 100MG/ML 10% VIAL 4ML INH SCH ×3 (00:43→16:00)
[2018-06-21] MEDS: IPRATROPIUM/ALBUTEROL 0.5-3(2.5)MG/3ML NEB HHN PRN ×2 (00:43→10:44)
[2018-06-21 04:00] VITALS: BP 118/71
[2018-06-21] MEDS: MORPHINE SULFATE 4 MG/ML CPJ (NOT FOR IM USE) IV PRN ×2 (05:27→09:48)
[2018-06-21] MEDS: BLOOD SUGAR DIAGNOSTIC STRIP TEST SCH ×2 (06:34→12:20)
[2018-06-21 08:00] VITALS: BP 123/75
[2018-06-21] MEDS: AZITHROMYCIN 500 MG TABLET PO SCH (08:27)
[2018-06-21] MEDS: PREDNISONE 20MG TABLET PO SCH (08:27)
[2018-06-21] MEDS: LIDOCAINE HCL 4% CREAM 76GM TUBE TP PRN (09:47)
[2018-06-21 12:00] VITALS: BP 126/81
[2018-06-21] MEDS: FUROSEMIDE 20MG/2ML VIAL IVP SCH (13:21)
[2018-06-21 16:00] VITALS: BP 110/76
[2018-06-21] MEDS: CEFTRIAXONE 1 G PREMIX 50 ML IV SCH (17:18)
[2018-06-21] MEDS: MONTELUKAST SODIUM 10MG TABLET PO SCH (17:18)
[2018-06-21] MEDS: HYDROCODONE/ACETAMINOPHEN 5/325MG TABLET PO PRN (19:42)
[2018-06-22] VITALS: BP 108/64
[2018-06-22] MEDS: ACETYLCYSTEINE 100MG/ML 10% VIAL 4ML INH SCH ×2 (00:56→08:05)
[2018-06-22] MEDS: IPRATROPIUM BROMIDE (0.02%) 0.5MG/2.5ML NEB HHN SCH ×6 (00:56→20:56)
[2018-06-22] MEDS: HYDROCODONE/ACETAMINOPHEN 5/325MG TABLET PO PRN ×3 (01:54→20:32)
[2018-06-22 04:00] VITALS: BP 113/78
[2018-06-22] MEDS: LIDOCAINE HCL 4% CREAM 76GM TUBE TP PRN (05:53)
[2018-06-22] MEDS: FUROSEMIDE 20MG/2ML VIAL IVP SCH (06:21)
[2018-06-22 08:00] VITALS: BP 106/67
[2018-06-22] MEDS: PREDNISONE 20MG TABLET PO SCH (09:36)
[2018-06-22] MEDS: AZITHROMYCIN 500 MG TABLET PO SCH (09:36)
[2018-06-22 12:00] VITALS: BP 99/59
[2018-06-22 16:00] VITALS: BP 93/60
[2018-06-22] MEDS: CEFTRIAXONE 1 G PREMIX 50 ML IV SCH (17:06)
[2018-06-22] MEDS: MONTELUKAST SODIUM 10MG TABLET PO SCH (17:06)
[2018-06-22 20:00] VITALS: BP 108/71
[2018-06-23] VITALS (7 sets, daily range): BP systolic 111–127; BP diastolic 8–78
[2018-06-23] MEDS: IPRATROPIUM BROMIDE (0.02%) 0.5MG/2.5ML NEB HHN SCH ×6 (00:53→20:55)
[2018-06-23 07:05] LABS: BASOPHILS % 0.2 % (0.0-2.0); EOSINOPHILS % 3.3 % (0.0-5.0); HEMATOCRIT. 39.3 % (42.0-52.0); LYMPHOCYTES % 14.7 % (20.0-50.0); MEAN CORPUSCULAR HEMOGLOBIN 27.6 pg (28.0-32.0); MEAN CORPUSCULAR VOLUME 83.9 fL (80.0-94.0); MEAN PLATELET VOLUME 9.4 fl (7.4-10.4); MONOCYTES % 13.6 % (2.0-8.0); NEUTROPHILS % 68.2 % (40.0-76.0); PLATELET 250 x1000/uL (130-400); RED BLOOD CELL COUNT 4.69 mill/uL (4.7-6.1); RED CELL DISTRIBUTION WIDTH 18.2 % (11.6-14.6)
[2018-06-23 07:13] LABS: CHLORIDE 98 mEq/L (98-107)
[2018-06-23] MEDS: MORPHINE SULFATE 4 MG/ML CPJ (NOT FOR IM USE) IV PRN ×2 (09:00→15:06)
[2018-06-23] MEDS: PREDNISONE 20MG TABLET PO SCH (09:00)
[2018-06-23] MEDS: MONTELUKAST SODIUM 10MG TABLET PO SCH (16:00)
[2018-06-23] MEDS: ACETAMINOPHEN 325MG TABLET PO PRN (23:45)
[2018-06-24] VITALS: BP 152/89
[2018-06-24] MEDS: IPRATROPIUM BROMIDE (0.02%) 0.5MG/2.5ML NEB HHN SCH ×6 (00:53→20:11)
[2018-06-24] MEDS: MORPHINE SULFATE 4 MG/ML CPJ (NOT FOR IM USE) IV PRN ×4 (02:23→19:58)
[2018-06-24 04:00] VITALS: BP 153/66
[2018-06-24 08:00] VITALS: BP 119/76
[2018-06-24] MEDS: PREDNISONE 20MG TABLET PO SCH (08:27)
[2018-06-24] MEDS ORDERED: HYDROCODONE/ACETAMINOPHEN 5/325MG TABLET PO PRN (09:15)
[2018-06-24 11:39] VITALS: BP 107/64
[2018-06-24 16:00] VITALS: BP 110/71
[2018-06-24] MEDS: MONTELUKAST SODIUM 10MG TABLET PO SCH (16:11)
[2018-06-24 20:00] VITALS: BP 128/79
[2018-06-25] VITALS (7 sets, daily range): BP systolic 116–140; BP diastolic 62–85
[2018-06-25] MEDS: IPRATROPIUM BROMIDE (0.02%) 0.5MG/2.5ML NEB HHN SCH ×5 (00:08→16:54)
[2018-06-25] MEDS: MORPHINE SULFATE 4 MG/ML CPJ (NOT FOR IM USE) IV PRN ×2 (04:16→16:18)
[2018-06-25] MEDS: PREDNISONE 20MG TABLET PO SCH (08:47)
[2018-06-25] MEDS: MONTELUKAST SODIUM 10MG TABLET PO SCH (17:39)
== END 2018-06-25 18:20 | DRG 189 ==
LOC: ER 12:33 → 5EST 13:54 → EDBEDREQ 13:59 → EDBEDREQSVC 13:59 → ENRESERV 20:10 → 6EST 06-16 14:40
PROVIDERS: ADMIT Internal Medicine; ATTEND Internal Medicine
PROC: 5A09457 Assistance with Respiratory Ventilation, 24-96 Consecutive Hours, Continuous Positive Airway Pressure (ICD-10-PCS; principal; 2018-06-14)
DX: J96.21 Acute and chronic respiratory failure with hypoxia (principal); C34.31 Malignant neoplasm of lower lobe, right bronchus or lung; E46 Unspecified protein-calorie malnutrition; C79.51 Secondary malignant neoplasm of bone; R65.10 Systemic inflammatory response syndrome (SIRS) of non-infectious origin without acute organ dysfunction; Z66 Do not resuscitate; J06.9 Acute upper respiratory infection, unspecified; I10 Essential (primary) hypertension; E11.9 Type 2 diabetes mellitus without complications; E78.5 Hyperlipidemia, unspecified; I25.10 Atherosclerotic heart disease of native coronary artery without angina pectoris; J44.9 Chronic obstructive pulmonary disease, unspecified; M19.012 Primary osteoarthritis, left shoulder; T38.0X5A Adverse effect of glucocorticoids and synthetic analogues, initial encounter; Y92.89 Other specified places as the place of occurrence of the external cause; Z87.891 Personal history of nicotine dependence; Z79.51 Long term (current) use of inhaled steroids; Z99.81 Dependence on supplemental oxygen; Z79.1 Long term (current) use of non-steroidal anti-inflammatories (NSAID); Z79.899 Other long term (current) drug therapy; Z68.24 Body mass index [BMI] 24.0-24.9, adult
CPT/HCPCS: 36415; 36600; 71045; 71260; 80048; 80061; 82375; 82550; 82553; 82805; 82962; 83036; 83735; 83880; 84100; 84443; 84484; 85379; 93005; 93970; 94640; 96374; 97110; 97162; 97166; 97535; 99285; C1893; J0456; J0696; J1815; J1940; J1956; J2270; J2543; J2920; J2930; J3370; J7030; J7040; J7050; J7060; J7512; J7608; J7620; Q9967